=== PATIENT | male | born 1930 | race Caucasian/White ===

== ENCOUNTER 2016-08-17 18:34 | Emergency (ER) | payer MEDICARE ==
[2016-08-17 20:25] LABS: Hematocrit 48 % (42-52); Mean Corpuscular HGB Conc 33 g/dl (31-36); Mean Corpuscular Hemoglobin 32 pg (27-31); Mean Corpuscular Volume 95 fL (80-94); Mean Platelet Volume 8 um3 (7.4-10.4); Red Blood Count 5.09 10^6/ul (4.0-5.4); Red Cell Distribution Width 15 % (10.5-15); White Blood Count 10.8 10^3/ul (3.5-10.8)
[2016-08-17 20:44] LABS: Albumin 3.8 g/dL (3.2-5.2); BUN/Creatinine Ratio 18.3 (8-20); EGFR Non-African American 57.5 (>60); Globulin 2.9 g/dL (2-4); Total Bilirubin 0.4 mg/dL (0.2-1.0); Total Protein 6.7 g/dL (6.4-8.9)
--- NOTE | 2016-08-17 20:44 | RAD ---
INDICATION: Head injury. COMPARISON: There are no prior studies available for comparison. TECHNIQUE: Contiguous axial sections of the brain were obtained from the skull base to the vertex without contrast. FINDINGS: The ventricles, cisterns and sulci are enlarged consistent with diffuse atrophy. There are small areas of decreased density in the subcortical and periventricular white matter suggestive of mild chronic small vessel ischemic changes. No other focal abnormality or mass effect is seen. There is no evidence for hemorrhage. There is soft tissue swelling and air in the scalp anterior to the frontal bones. No fracture is seen. There is mucosal thickening within the maxillary, left ethmoid and left frontal sinuses most consistent with chronic sinusitis. IMPRESSION: SOFT TISSUE INJURY IN THE SCALP ANTERIOR TO THE FRONTAL BONES, NO EVIDENCE FOR ACUTE INTRACRANIAL ABNORMALITY.
[2016-08-17 21:17] LABS: Potassium 4.4 mmol/L (3.5-5.0)
--- NOTE | 2016-08-17 21:23 | ED ---
Jaiden Giron Matthew, scribed for Joseph Macedo MD on 08/17/16 at 1934 . Head Injury - HPI Summary HPI Summary: An 85 y/o male presents to the ED with head injury since hours ago. The patient bent over and fell into an end table breaking the table and sustaining head trauma. The patient denies LOC. He's currently on warfarin and uses 2L O2 at baseline. - History Of Current Complaint Chief Complaint: EDHeadInjury Stated Complaint: FALL/HEAD INJURY Time Seen by Provider: 08/17/16 19:15 Hx Obtained From: Patient Mechanism Of Injury: Fall From A Standing Position Onset/Duration: Started Hours Ago, Traumatic, Still Present Onset of Pain: Immediate Severity Currently: Mild Severity Initially: Mild Pain Intensity: 2 Pain Scale Used: 0-10 Numeric Location of Head Injury: Frontal Associated Signs And Symptoms: LOC Duration Unknown - Allergies/Home Medications Allergies/Adverse Reactions: Allergies Allergy/AdvReac Type Severity Reaction Status Date / Time Aspirin Allergy Facial Verified 08/17/16 18:45 Redness/Flushing PMH/Surg Hx/FS Hx/Imm Hx Cardiovascular History: Reports: Hx Hypertension Respiratory History: Reports: Hx Chronic Obstructive Pulmonary Disease (COPD), Hx Sleep Apnea GI History: Reports: Hx Gastroesophageal Reflux Disease Musculoskeletal History: Reports: Hx Arthritis Psychiatric History: Reports: Hx Depression Infectious Disease History: Denies: Traveled Outside the [place] in Last 30 Days - Family History Known Family History: Positive: Hypertension Family History: FHx of [place] - Social History Alcohol Use: Rare Hx Substance Use: No Substance Use Type: Reports: None Hx Tobacco Use: Yes Smoking Status (MU): Former Smoker Review of Systems Constitutional: Negative Eyes: Negative ENT: Negative Cardiovascular: Negative Respiratory: Negative Gastrointestinal: Negative Genitourinary: Negative Musculoskeletal: Other - head trauma Skin: Other - laceration to the forehead Neurological: Negative Psychological: Normal All Other Systems Reviewed And Are Negative: Yes Physical Exam Triage Information Reviewed: Yes Vital Signs On Initial Exam: Initial Vitals Temp Pulse Resp BP Pulse Ox 97.8 F 79 18 141/70 91 08/17/16 18:43 08/17/16 18:43 08/17/16 18:43 08/17/16 18:43 08/17/16 18:43 Vital Signs Reviewed: Yes Appearance: Positive: Ill-Appearing, Pain Distress - mild discomfort Skin: Positive: Other - large frontal scalp lac Eyes: Positive: CANDELARIO ENT: Positive: Pharynx normal, TMs normal Neck: Positive: Supple Respiratory/Lung Sounds: Positive: Clear to Auscultation, Breath Sounds Present Cardiovascular: Positive: RRR Abdomen Description: Positive: Soft Bowel Sounds: Positive: Present Musculoskeletal: Positive: Strength/ROM Intact Neurological: Positive: Sensory/Motor Intact, Alert, Oriented to Person Place, Time Psychiatric: Positive: Affect/Mood Appropriate Diagnostics - Vital Signs Vital Signs Temp Pulse Resp BP Pulse Ox 08/17/16 18:43 97.8 F 79 18 141/70 91 - Laboratory Lab Results: Lab Results 08/17/16 08/17/16 08/17/16 Range/Units 20:10 20:10 20:10 WBC 10.8 (3.5-10.8) 10^3/ul RBC 5.09 (4.0-5.4) 10^6/ul Hgb 16.0 (14.0-18.0) g/dl Hct 48 (42-52) % MCV 95 H (80-94) fL MCH 32 H (27-31) pg MCHC 33 (31-36) g/dl RDW 15 (10.5-15) % Plt Count 211 (150-450) 10^3/ul MPV 8 (7.4-10.4) um3 Neut % (Auto) 80.8 (38-83) % Lymph % (Auto) 10.7 L (25-47) % [place] % (Auto) 6.4 (1-9) % Eos % (Auto) 1.1 (0-6) % Baso % (Auto) 1.0 (0-2) % Absolute Neuts (auto) 8.7 H (1.5-7.7) 10^3/ul Absolute Lymphs (auto) 1.2 (1.0-4.8) 10^3/ul Absolute Monos (auto) 0.7 (0-0.8) 10^3/ul Absolute Eos (auto) 0.1 (0-0.6) 10^3/ul Absolute Basos (auto) 0.1 (0-0.2) 10^3/ul Absolute Nucleated RBC 0.01 10^3/ul Nucleated RBC % 0 INR (Anticoag Therapy) 2.63 H (0.89-1.11) Sodium 134 (133-145) mmol/L Potassium 4.4 (3.5-5.0) mmol/L Chloride 101 (101-111) mmol/L Carbon Dioxide 27 (22-32) mmol/L Anion Gap 6 (2-11) mmol/L BUN 22 (6-24) mg/dL Creatinine 1.20 H (0.67-1.17) mg/dL Est GFR ( Amer) 74.0 (>60) Est GFR (Non-Af Amer) 57.5 (>60) BUN/Creatinine Ratio 18.3 (8-20) Glucose 131 H (70-100) mg/dL Calcium 9.0 (8.6-10.3) mg/dL Total Bilirubin 0.40 (0.2-1.0) mg/dL AST 18 (13-39) U/L ALT 19 (7-52) U/L Alkaline Phosphatase 69 (34-104) U/L Total Protein 6.7 (6.4-8.9) g/dL Albumin 3.8 (3.2-5.2) g/dL Globulin 2.9 (2-4) g/dL Albumin/Globulin Ratio 1.3 (1-3) Result Diagrams: 08/17/16 20:10 08/17/16 20:10 Lab Statement: Any lab studies that have been ordered have been reviewed, and results considered in the medical decision making process. - CT Brain CT CT Interpretation: No Acute Changes - IMPRESSION: SOFT TISSUE INJURY IN THE SCALP ANTERIOR TO THE FRONTAL BONES, NO EVIDENCE FOR ACUTE INTRACRANIAL ABNORMALITY. CT Interpretation Completed By: Radiologist Head Injury Course/Dx Assessment/Plan: An 85 y/o male presents to the ED with head injury since hours ago. The patient bent over and fell into an end table breaking the table and sustaining head trauma. The patient denies LOC. He's currently on warfarin and uses 2L O2 at baseline. Labs were reviewed. Brain CT shows soft tissue injury in the scalp anterior to the frontal bones, no evidence for acute intracranial abnormality. The head laceration was sutured by Rachael Pringle. The patient will follow-up with his PCP. - Diagnoses Provider Diagnoses: Scalp laceration, Closed head injury Discharge - Discharge Plan Condition: Improved Disposition: HOME Patient Education Materials: Laceration (ED), Head Injury (ED) Referrals: [facility] [place] [facility]FERRAL [Outside] Non Staff,Doctor [Primary Care Provider] - Additional Instructions: Please follow-up with your primary care physician in 3 days. The documentation as recorded by the Jaiden macdonald Matthew accurately reflects the service I personally performed and the decisions made by me, Joseph Macedo MD.
--- NOTE | 2016-08-17 22:22 | PN ---
Progress Note - Progress Note Note: sutures to forehead: cleaned area with saline 200ml Use local lidocaine 1% with epi Performed layered closer (18 sutures total) 4 sutures deep 6-0 absorbable Applied 14 sutures 6-0 nonabsorbable
[2016-08-17 23:43] VITALS: BP 112/60
== END 2016-08-17 23:42 | disposition home or self-care (01) ==
LOC: ED 18:34
DX: S01.01XA Laceration without foreign body of scalp, initial encounter (principal); S09.90XA Unspecified injury of head, initial encounter; Z87.891 Personal history of nicotine dependence; Z79.01 Long term (current) use of anticoagulants; Y92.9 Unspecified place or not applicable; W18.09XA Striking against other object with subsequent fall, initial encounter; I10 Essential (primary) hypertension; J44.9 Chronic obstructive pulmonary disease, unspecified; K21.9 Gastro-esophageal reflux disease without esophagitis
CPT/HCPCS: 36415; 70450; 80053; 85025; 85610; 99283

== ENCOUNTER 2017-12-25 17:03 | Emergency (ER) | payer MEDICARE ==
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
--- NOTE | 2017-12-25 18:11 | RAD ---
INDICATION: Fall. Anticoagulated. COMPARISON: No relevant prior exams available on the [facility] for comparison. TECHNIQUE: Multidetector CT images foramen magnum to lung apices without contrast. Multiplanar reformation. REPORT: Motion artifact degrades image quality. Normal vertebral alignment accounting for exam positioning without spondylolisthesis or subluxation at any level. Negative for cervical vertebral body or posterior element fracture. Negative for paravertebral hematoma. 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 At 3-4 uncinate process spurring and facet joint osteoarthritis results in moderate LEFT unilateral foraminal stenosis. At C4-C5 uncinate process spurring and facet joint osteoarthritis results in mild RIGHT unilateral foraminal stenosis. At C5-C6 dorsal disc osteophyte complex results in mild impression on the ventral margin of the thecal sac and uncinate process spurring and facet joint osteoarthritis results in severe RIGHT and moderate LEFT foraminal stenosis. At C6-C7 dorsal disc osteophyte complex results in mild impression on the ventral margin of the thecal sac. Uncinate process spurring and facet joint osteoarthritis results in severe RIGHT and moderately severe LEFT foraminal stenosis. Congenitally generous pedicle lengths mitigate against more significant acquired central canal stenosis. IMPRESSION: #. No CT evidence for traumatic cervical spine injury.
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
[2017-12-25] MEDS ORDERED: Acetaminophen TAB* 325 MG PO ONE (18:36)
[2017-12-25] MEDS ORDERED: Albuterol/Ipratropium NEB.SOL* Albuterol 2.5 MG/Ipratropium 0.5 MG 3 ML INH ONE (18:36)
--- NOTE | 2017-12-25 20:19 | RAD ---
EXAM: CT Abdomen and Pelvis Without Intravenous Contrast CLINICAL HISTORY: 87 years old, male; Pain; Other: Low back pain; Additional info: Low back, b/l flank pain S/P fall TECHNIQUE: Axial computed tomography images of the abdomen and pelvis without intravenous contrast. All CT scans at this facility use at least one of these dose optimization techniques: automated exposure control; mA and/or kV adjustment per patient size (includes targeted exams where dose is matched to clinical indication); or iterative reconstruction. Coronal and sagittal reformatted images were created and reviewed. COMPARISON: No relevant prior studies available. FINDINGS: Lung bases: Patchy dependent lower lobe opacities are present bilaterally which could represent atelectasis, infiltrate, or aspiration. ABDOMEN: Liver: There is a diffuse decrease in hepatic parenchymal density, consistent with fatty infiltration. Gallbladder and bile ducts: Calcified gallstones are present in the gallbladder which is incompletely distended. No adjacent inflammatory change. Pancreas: Unremarkable. No mass Spleen: Unremarkable. Adrenals: Unremarkable. No mass. Kidneys and ureters: Several cysts are present in the left kidney, largest measuring 4.5 cm in the interpolar region. However, 2 exophytic hypodensities arise from the lateral aspect of the left kidney on series 2 images 29 and 34, measuring 16 and 13 mm, respectively. These measure above simple fluid density and may represent complex cysts or small solid lesions. However, they are incompletely characterized on this exam. A 5 mm calcification is present at the lower pole of the left kidney. A 4 mm hypodensity at the lower pole of the right kidney is too small to characterize but likely a tiny cyst. Stomach and bowel: Diverticula are noted in the left colon with innumerable diverticula in the sigmoid colon. No evidence of diverticulitis. No bowel obstruction. PELVIS: Appendix: The appendix is normal. Bladder: Unremarkable. No calcified stones. Reproductive: Unremarkable as visualized. ABDOMEN and PELVIS: Intraperitoneal space: Unremarkable. No free air or free fluid. Bones/joints: Mild degenerative endplate change and facet joint hypertrophy noted in lower lumbar spine, with moderate narrowing of the L5/S1 disc space. Vertebral body heights are maintained.No acute fracture identified. Soft tissues: Unremarkable. Vasculature: There is calcified plaque of the abdominal aorta and bilateral iliac arteries. There is no aneurysm. Lymph nodes: Unremarkable. No enlarged lymph nodes. Tubes, lines and devices: Electrical leads extend into the heart. Heart size is at the upper limits of normal. IMPRESSION: 1. No traumatic abnormality in the abdomen or pelvis. 2. Patchy dependent lower lobe opacities are present bilaterally which could represent atelectasis, infiltrate, or aspiration. 3. Degenerative change in lower lumbar spine. No acute fracture identified. See separate lumbar spine CT report. 4. Left renal cysts. Additionally, 2 small hypodensities are present in left kidney which measure above simple fluid density. These may represent complex cysts or small solid lesions. However, they are incompletely characterized on this exam. Comparison with prior studies is recommended. If no prior is available, ultrasound or renal protocol CT or MRI may be helpful for further characterization. 5. Cholelithiasis. Diverticulosis coli. No acute inflammation. 6. Left nephrolithiasis. No obstructive uropathy. 7. Other non-emergent findings as above.
--- NOTE | 2017-12-25 20:25 | RAD ---
EXAM: CT Lumbar Spine Without Intravenous Contrast CLINICAL HISTORY: 87 years old, male; Pain; Low back pain; Additional info: Pain S/P fall TECHNIQUE: Axial computed tomography images of the lumbar spine without intravenous contrast. All CT scans at this facility use at least one of these dose optimization techniques: automated exposure control; mA and/or kV adjustment per patient size (includes targeted exams where dose is matched to clinical indication); or iterative reconstruction. Coronal and sagittal reformatted images were created and reviewed. COMPARISON: No relevant prior studies available. FINDINGS: Vertebrae: No acute fracture or subluxation. Mild facet joint sclerosis noted at L3/L4, L4/L5, and more severe at L5/S1. Moderate endplate osteophyte formation present from L2-L5. Discs/spinal canal/neural foramina: There is moderate to severe narrowing of the L5/S1 disc space. Vacuum disc phenomenon noted at L4/L5 with no significant disc space narrowing. Soft tissues: Unremarkable. Vasculature: There is calcified plaque of the abdominal aorta and bilateral iliac arteries. There is no aneurysm. Kidneys and ureters: Left renal cyst partially visualized. See separate abdomen and pelvis CT report. IMPRESSION: 1. No acute fracture or subluxation. 2. Moderate degenerative change in lumbar spine as above. 3. See separate abdomen and pelvis CT report.
[2017-12-25 21:28] VITALS: BP 157/88
--- NOTE | 2017-12-26 07:55 | RAD ---
INDICATION: Right elbow pain after a fall COMPARISON: None. TECHNIQUE: 3 views right elbow. REPORT: The visualized bones of the right elbow are well corticated and properly aligned. There is no radiographically apparent fracture or dislocation. There is no radiographic evidence of pathologic joint effusion. IMPRESSION: Normal radiograph of the right elbow. If the patient's symptoms persist further follow-up imaging is recommended. R0
== END 2017-12-25 21:45 | disposition home or self-care (01) ==
LOC: ED 17:03
DX: M54.9 Dorsalgia, unspecified (principal); M25.521 Pain in right elbow; Z87.891 Personal history of nicotine dependence; J44.9 Chronic obstructive pulmonary disease, unspecified; M54.5 Low back pain; S09.90XA Unspecified injury of head, initial encounter; W19.XXXA Unspecified fall, initial encounter; Y92.9 Unspecified place or not applicable; Z79.01 Long term (current) use of anticoagulants
CPT/HCPCS: 70450; 72125; 72131; 74176; 99285; A9270-GY

== ENCOUNTER 2019-03-02 14:33 | Emergency (ER) | payer MEDICARE ==
--- OUTSIDE RECORDS SUMMARY | 2019-03-02 14:40 | XMS REPORT | Summary of Care ---
:1930 Author Organization [facility] Address [address] [facility] [place] [address] Care Team Providers Name Role Phone Connor Sullivan Primary Care Provider Reason for Visit Reason Comments Heart Problem 6 month f/u Results echo today Encounter Details Date Type Department Care Team Description 02/15/2019 Office Visit Carla Harris, Nonischemic cardiomyopathy (HCC) (Primary Dx); Cardiology DIRECTOR OF MEDICAL EDUCATION Atrial fibrillation, chronic [address] [place] [address] [place] [address] [phone] Allergies Active Allergy Reactions Severity Noted Date Comments Aspirin Swelling 01/17/2008 Eyes swell shut documented as of this encounter (statuses as of 02/15/2019) Medications Medication Sig Dispensed Refills Start Date End Date Status Omeprazole 20 MG Take 1 Tab by 90 Tab 3 06/30/2012 Active Oral Tab EC mouth DAILY. Tamsulosin HCl TAKE 1 CAPSULE 90 Cap 1 02/20/2013 Active (FLOMAX) 0.4 MG DAILY Oral Cap allopurinol Take 1 Tab by 90 Tab 5 11/14/2013 Active (ZYLOPRIM) 300 MG mouth DAILY. Oral Tab mometasone furoate Take 1 Puff by 3 Inhaler 0 07/05/2014 Active (ASMANEX) 220 inhalation mcg/inh DAILY. spironolactone Take 1 Tab by 90 Tab 0 07/05/2014 Active (ALDACTONE) 25 MG mouth DAILY. Oral TabIndications: Diastolic dysfunction Albuterol Take by 0 Active (PROVENTIL IN) inhalation. diltiazem (CARDIZEM Take 1 Cap by 180 Cap 0 02/12/2016 Active CD) 180 MG Oral mouth DAILY. CAPSULE SR 24 HRIndications: Diastolic dysfunction Tiotropium Take 2 Each by 1 g 0 01/21/2017 Active [place]-Olodaterol inhalation 2.5-2.5 MCG/ACT DAILY. Inhalation Aero Soln predniSONE Take 1 Tab by 30 Tab 0 01/21/2017 Active (DELTASONE) 5 MG mouth DAILY. Oral Tab acetaminophen Take 1,000 mg by 0 Active (TYLENOL) 500 MG mouth EVERY SIX Oral Tab HOURS NEEDED for Pain. lidocaine Apply bid 150 g 0 01/04/2018 Active (XYLOCAINE) 5 % Apply externally Ointment ondansetron Take 4 mg by 18 Tab 0 04/22/2018 Active (ZOFRAN) 4 MG Oral mouth EVERY Tab EIGHT HOURS NEEDED (nausea). diclofenac 4 g by Topical 100 g 5 05/02/2018 Active (VOLTAREN) 1 % route TWICE Transdermal Gel DAILY. tramadol (ULTRAM) Take 1 Tab by 30 Tab 0 06/02/2018 Active 50 MG Oral Tab mouth EVERY EIGHT HOURS NEEDED (back pain compression fx). Max Daily Amount: 150 mg. warfarin (COUMADIN) Take 0.5-1 Tabs 90 Tab 3 08/08/2018 Active 5 MG Oral by mouth DAILY. TabIndications: As directed Atrial which is 2.5mg fibrillation, Mon. 5mg rest chronic of week mirtazapine Take 1 Tab by 90 Tab 1 09/01/2018 Active (REMERON) 15 MG mouth EVERY Oral Tab BEDTIME. mometasone furoate Take 1 Puff by 3 Each 0 09/01/2018 Discontinued (ASMANEX) 220 inhalation 9 MCG/INH Inhalation DAILY. 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 04/17/2013 Overview: Managed by [facility], referred by Dr Wills, Dx afib, CHADS2 score 1, target INR range 2.0-3.0 Anticoagulant Warfarin Updated referral 04/2014, 07/2015, 09/2016, 12/2017, 01/2019 Updated order 05/17/14, 08/12/15, 10/19/16, 01/03/18, 02/10/19 Additional factors influencing anticoagulation: Chads2 of 2 (age and heart failure) [id number] of 3 (age, heart failure) Tylenol increases warfarin effect Allopurinol increases Warfarin effect Diltiazem increases Warfarin effect Omeprazole increases Warfarin effect Spironolactone decreases warfarin Prednisone decreased Warfarin effect Tamsulosin has unknown/unpredictable effects of Warfarin Obesity, unspecified 05/25/2012 Overview: This patient's BMI This patient's BMI has been calculated and is above average , and BMI management plan is completed. General patient education discussion including: weight loss link to reduction of risk factors for cardiac and other diseases, importance of long-term maintenance treatment in weight loss, and accomplish with exercise as tolerated and diet control Erythrocytosis 09/26/2009 Malignant neoplasm of skin 09/26/2009 Overview: Replaced inactive diagnosis Chronic rhinitis 09/26/2009 PVCs (premature ventricular contractions) 09/26/2009 OA (osteoarthritis) 09/26/2009 Unspecified hearing loss 09/26/2009 COPD (chronic obstructive pulmonary disease) 01/17/2008 Overview: Followed by Dr. Navarro PULMONARY NODULES 01/17/2008 Overview: Followed by Dr. Navarro JUSTICE (obstructive sleep apnea) 01/17/2008 Overview: Followed by Dr. Navarro Left Lower Lobular Atelectasis 01/17/2008 Overview: Followed by Dr. Navarro GERD (gastroesophageal reflux disease) 01/17/2008 Fatty liver 01/17/2008 Atrial fibrillation, chronic documented as of this encounter (statuses as of 02/15/2019) Resolved Problems Problem Noted Date Resolved Date Atrial fibrillation, unspecified type 08/05/2015 02/12/2016 Obesity (BMI 30-39.9) 01/17/2008 03/01/2012 Overview: This patient's BMI This patient's BMI has been calculated and is above average, and BMI management plan is completed. General patient education discussion including: weight loss link to reduction of r isk factors for cardiac and other diseases, importance of long-term maintenance treatment in weight loss, and accomplish with exercise as tolerated and diet control History of Depression 01/17/2008 09/26/2009 History of Bladder Tumors 01/17/2008 09/26/2009 Overview: S/P resection followed by intravesical BCG, 04/2002, Dr. Tello. Continues f /u with Dr. Tello. Left Ureteral Calculus 01/17/2008 09/26/2009 Overview: S/P stent placement, [place]. Tello, [place] [facility] documented as of this encounter (statuses as of 02/15/2019) Immunizations Name Administration Dates Next Due Influenza (IM) Preservative Free 01/19/2012, 02/10/2011, 01/22/2009, 02/16/2008 Influenza (IM) W/Pres 02/09/2013, 01/23/2010 Influenza Vaccine 65 Yrs + 02/15/2019 Influenza Vaccine High Dose 02/16/2018, 01/21/2017, 02/21/2015, 02/02/2014 Influenza Vaccine Split 01/21/2016 PNEUMOCOCCAL POLYSACCHARIDE VACCINE 02/20/2010, 03/10/2005 Pneumococcal Conjugate(13 Valent) 02/05/2016 TDAP Vaccine 02/10/2011 documented as of this encounter Social History Tobacco Use Types Packs/Day Years Used Date Former Smoker Cigarettes 1 50 Quit: 04/26/2003 Smokeless Tobacco: Never Used Comments: smoked mainly cigarettes but did occasionally smoke a pipe Alcohol Use Drinks/Week oz/Week Comments Yes 4 Cans of beer 4.0 occasionally Sex Assigned at Date Recorded Not on file Job Start Date Occupation Industry Not on file Not on file Not on file Travel History Travel Start Travel End No recent travel history available. documented as of this encounter Last Filed Vital Signs Vital Sign Reading Time Taken Comments Blood Pressure 136/68 02/15/2019 1:55 PM EDT Pulse 65 02/15/2019 1:55 PM EDT Temperature - - Respiratory Rate - - Oxygen Saturation 95% 02/15/2019 1:55 PM EDT Inhaled Oxygen Concentration - - Weight 108.4 kg (239 lb) 02/15/2019 1:55 PM EDT Height 180.3 cm (5' 11") 02/15/2019 1:55 PM EDT Body Mass Index 33.33 02/15/2019 1:55 PM EDT documented in this encounter Patient Instructions Patient InstructionsCarla Holt CRNP - 02/15/2019 2:00 PM EDTWe will send you a results of your Echocardiogram and let you know if any medications changes are necessary at that time. Follow up in [address] Ventura on 08/16/2019, or sooner if there are any changes in your symptoms. Continue with strict risk factor modification; especially increasing cardiovascular activity, low fat low cholesterol diet and weight management. Would like to see Blood pressure less than 130/80 and trying to keep LDL less than 70. Any further questions or concerns contact our office. documented in this encounter Progress Notes Carla Holt CRNP - 02/15/2019 2:00 PM EDT PATIENT: Korey Jaime : 1930 DATE OF SERVICE: 02/15/2019 REFERRING PRACTITIONER: Jared Ventura PRIMARY CARE PROVIDER: Connor Sullivan CHIEF COMPLAINT: Chief Complaint Patient presents with Heart Problem 6 month f/u Results echo today HISTORY OF PRESENT ILLNESS: Korey Jaime is a 88-y.o. male PMH COPD on home O2 and chronic low dose prednisone, obesity, JUSTICE on CPAP, permanent Atrial fibrillation on Coumadin s/p AV node ablation and [facility] Zhou dual chamber ppm as well as nonischemic cardiomyopathy. Dual chamber ppm was upgraded to [facility] Zhou BiV ppm 04/07/[address] Wills given high RV pacing burden. 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 Remains housebound, butis able to complete his stem mounter without significant limitation. Occasionally monitors his blood pressure at home and it is generally 120s/60s. Denying any chest pain. Denies congestive heart failure symptoms, palpations or dizziness. Cardiac Studies: PPM Interrogation 11/11/18: There were 9 recorded "high ventricular rate" episodes which are brief episodes of rapid ventricular response to atrial fibrillation. Heart rates ranged between 70-80 bpm themajority of the time. Surface QRS measured 121 ms. CorVue Impedance monitoring shows no decrease in thoracic impedance measurements. If decreased, this would indicate that possible fluid accumulation was occurring at that time. Pacemaker function appears normal.Pacemaker function appears normal. TTE 07/31/16: Limited study to assess LVEF. LV systolic function is mild-moderately reduced, with an estimated LVEF of 40%. There is global hypokinesis. In direct visual comparison with images of TTE dated 12/23/15, abnormal septal motion and regional wall motion abnormalities are not seen (patient is now biventricular paced), and there is very minimal improvement in overall LVEF. Left and Right Heart Cath 01/21/16: RIGHT HEART CATHETERIZATION FINDINGS: 1. Right atrial pressure, mean of 7. 2. Right ventricular pressure was 40/7. 3. Pulmonary artery pressure was mean of 25. 4. Pulmonary capillary wedge pressure was 10. 5. Cardiac output by Jana was 8.1. 6. Cardiac index by Jana was 3.5. 7. Aortic saturation was 96%. 8. Pulmonary artery saturation was 81%. 9. Right atrial saturation was 81%. 10. Delta saturation was 15%. 11. Pulmonary vascular resistance was 1.7 wood units. SUMMARY: 1. Mild nonobstructive coronary artery disease. 2. Normal pulmonary arterial pressure. Limited TTE 12/23/15: FINAL IMPRESSION: Limited study to assess LVEF and regional wall motion. IV contrast agent "Definity" was used for enhanced imaging of the LV endocardium. Mild concentric LVH with normal left atrial size. Moderately reduced LV systolic function with abnormal septal motion and LAD distribution wall motion abnormalities, as described. Calculated LVEF 38%. Mild right heart enlargement with low normal RV contractility. No pericardial effusion. Compared to prior echo report 10/07/2015, LVEF is not significantly changed. TTE 10/07/15: FINAL IMPRESSION: Left ventricle normal in size with moderate systolic dysfunction which is most likely global with Dysynchrony creating appearance of multiple wall motion abnormalities. EF 35-40%. diastolic dysfunction of advanced degree also present. The right ventricle is normal in size with near normal contractility. PPM/ICD wires visualized in right atrium and right ventricle. Mild enlargement of both atria left more than right. The aortic valve is tricuspid, mildly calcified, with normal mobility. There is no aortic stenosis or regurgitation. Mitral valve has thickened but flexible leaflets. There is at least mild mitral regurgitation. There is mild tricuspid regurgitation with mild elevation of pulmonary artery pressure. No pericardial effusion. compared to 09/14/2013, not a significant change. PPM Interrogation 09/30/15: This visit was performed remotely. Ventricular pacing with capture and atrial sensing was seen at the time of this transmission. Mr. Drader remains in atrial fibrillation 100% of the time this conductsrapidly at times. Pacemaker function appears normal. [place] [facility] [place]: 1. Normal coronary arteries 2. Normal LV size and systolic function Past Medical History: Diagnosis Date AK (actinic keratosis) Allergic rhinitis Arthritis left hand Atrial fibrillation (HCC) Basal cell carcinoma nos Cardiac dysrhythmia, unspecified frequent PVC COPD (chronic obstructive pulmonary disease) (HCC) 01/17/2008 chronic oxygen Diastolic dysfunction 05/26/2013 Erythrocytosis Fatty liver 01/17/2008 GERD (gastroesophageal reflux disease) 01/17/2008 History of Bladder Tumors 01/17/2008 S/P resection followed by intravesical BCG, 04/2002, Dr. Tello. Continues f /u with Dr. Tello. History of Depression 01/17/2008 off prozac Left Lower Lobular Atelectasis 01/17/[address] Navarro Left Ureteral Calculus 01/17/2008 S/P stent placement, [place]. Tello, [place]16[place] [facility] Obesity (BMI 30.0-39.9) 01/17/2008 10/17/2007, BMI: 35.01 JUSTICE (obstructive sleep apnea) 01/17/[address] Navarro CPAP 9 and 2liter Osteoarthritis Problems with hearing PULMONARY NODULES 01/17/[address] Navarro Rosacea Squamous cell carcinoma nos Patient Active Problem List Diagnosis COPD (chronic obstructive pulmonary disease) (HCC) PULMONARY NODULES JUSTICE (obstructive sleep apnea) Left Lower Lobular Atelectasis GERD (gastroesophageal reflux disease) Fatty liver Erythrocytosis Malignant neoplasm of skin Chronic rhinitis PVCs (premature ventricular contractions) OA (osteoarthritis) Unspecified hearing loss Obesity, unspecified Atrial fibrillation, chronic correction current use of anticoagulant therapy Diastolic dysfunction Pulmonary hypertension (HCC) Shortness of breath Chronic systolic congestive heart failure (HCC) Past Surgical History: Procedure Laterality Date BLADDER OPERATION NEC 04/2002 Resection followed by intravesical BCG, Dr. Tello CARDIAC STRESS TEST NEC 2009 no ischemia but hypokinetic with ef 45% cath normal CARDIOVERSION N/A 05/12/2013 Procedure: CARDIOVERSION; Surgeon: Chencho Wills MD; Location: [facility]; Laterality: N/A; CV CATHETERIZATION HEART RIGHT AND LEFT Right 01/21/2016 Procedure: CATHETERIZATION HEART RIGHT AND LEFT; Surgeon: Ede Duran MD ; Location: [facility] ECHOCARDIOGRAM 2009 LA slight dilated, RV =nl, mild LVH, zafar dysfxn, 50% IMPLANT PERMANENT PACEMAKER INSERTION N/A 05/15/2013 Procedure: IMPLANT PERMANENT PACEMAKER INSERTION; Surgeon: Chencho Wills MD; Location: [facility]; Laterality: N/A; AVN ABLATION / DUAL CHAMBER PPM LT RT/LEFT HEART CARD CATH 2009 normal SP URETERAL CATH OR STENT PLACEMENT [place] [facility] Current Outpatient Medications Medication Sig acetaminophen (TYLENOL) 500 MG Oral Tab Take 1,000 mg by mouth EVERY SIX HOURS NEEDED for Pain. Albuterol (PROVENTIL IN) Take by inhalation. allopurinol (ZYLOPRIM) 300 MG Oral Tab Take 1 Tab by mouth DAILY. diclofenac (VOLTAREN) 1 % Transdermal Gel 4 g by Topical route TWICE DAILY. diltiazem (CARDIZEM CD) 180 MG Oral CAPSULE SR 24 HR Take 1 Cap by mouth DAILY. lidocaine (XYLOCAINE) 5 % Apply externally Ointment Apply bid mirtazapine (REMERON) 15 MG Oral Tab Take 1 Tab by mouth EVERY BEDTIME. mometasone furoate (ASMANEX) 220 mcg/inh Take 1 Puff by inhalation DAILY. Omeprazole 20 MG Oral Tab EC Take 1 Tab by mouth DAILY. ondansetron (ZOFRAN) 4 MG Oral Tab Take 4 mg by mouth EVERY EIGHT HOURS NEEDED (nausea). predniSONE (DELTASONE) 5 MG Oral Tab Take 1 Tab by mouth DAILY. spironolactone (ALDACTONE) 25 MG Oral Tab Take 1 Tab by mouth DAILY. Tamsulosin HCl (FLOMAX) 0.4 MG Oral Cap TAKE 1 CAPSULE DAILY Tiotropium [place]-Olodaterol 2.5-2.5 MCG/ACT Inhalation Aero Soln Take 2 Each by inhalation DAILY. tramadol (ULTRAM) 50 MG Oral Tab Take 1 Tab by mouth EVERY EIGHT HOURS NEEDED (back pain compression fx). Max Daily Amount: 150 mg. warfarin (COUMADIN) 5 MG Oral Tab Take 0.5-1 Tabs by mouth DAILY. As directed which is 2.5mg Mon. 5mg rest of week No current facility-administered medications for this visit. Allergies Allergen Reactions Aspirin Swelling Eyes swell shut Family History Problem Relation Age of Onset Hypertension Mother Heart Mother 60-70 with angina but lived to 90s Cancer Father adrenal glands Hypertension Sister Arthritis Brother Arthritis Daughter Cancer Sister stomach Social History Socioeconomic History Marital status: Spouse name: Not on file Number of children: Not on file Years of education: Not on file Highest education level: Not on file Occupational History Not on file Social Needs Financial resource strain: Not on file Food insecurity: Worry: Not on file Inability: Not on file Transportation needs: Medical: Not on file Non-medical: Not on file Tobacco Use Smoking status: Former Smoker Packs/day: 1.00 Years: 50.00 Pack years: 50.00 Types: Cigarettes Last attempt to quit: 04/26/2003 Years since quittin.8 Smokeless tobacco: Never Used Tobacco comment: smoked mainly cigarettes but did occasionally smoke a pipe Substance and Sexual Activity Alcohol use: Yes Alcohol/week: 4.0 standard drinks Types: 4 Cans of beer per week Comment: occasionally Drug use: No Sexual activity: Not on file Lifestyle Physical activity: Days per week: Not on file Minutes per session: Not on file Stress: Not on file Relationships Social connections: Talks on phone: Not on file Gets together: Not on file Attends alevism service: Not on file Active member of club or organization: Not on file Attends meetings of clubs or organizations: Not on file Relationship status: Not on file Intimate partner violence: Fear of current or ex partner: Not on file Emotionally abused: Not on file Physically abused: Not on file Forced sexual activity: Not on file Other Topics Concern Not on file Social History Narrative 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 He worked for [employer] for a little over 35 years. Pt unaware of any exposure to asbestos or any other harsh chemicals. Pt. Was and Pt lives alone but has children (3) that live very close to the patient REVIEW OF SYSTEMS: Patient denies fever, febrile illness. denies fatigue. NEUROLOGIC: Denies transient ischemic attackor cerebrovascular accident signs or symptoms. Denies syncope or presyncopal episodes. CARDIOVASCULAR: denies chest pain, denies palpations, denies edema. RESPITATORY: + chronic shortness of breath, denies orthopnea. GASTROINTESTINAL: Denies melena. GENITOURINARY: Denies hematura or nocturia. MUSCULOSKELETAL: denies claudication. All other remaining systems are negative. Except that stated above in history of present illness PHYSICAL EXAMINATION: BP 136/68 | Pulse 65 | Ht 5' 11" (1.803 m) | Wt 239 lb (108.4 kg) | SpO2 95 % | BMI 33.33 kg/m CONSTITUTIONAL: alert, oriented, no acute distress. On nasal canula. EYES: negative EARS/NOSE/MOUTH/THROAT: Head: Normal, normocephalic, atraumatic. NECK: no bruit RESPIRATORY: clear to auscultation bilaterally CARDIOVASCULAR: regular rate and rhythm GASTROINTESTINAL: soft, non tender, without masses or organomegaly MUSCULOSKELETAL: negative VASCULAR: No edema SKIN: warm and dry, intact NEUROLOGICAL: alert, oriented, normal speech, no focal findings or movement disorder noted PSYCHIATRIC: appropriate to circumstances HEMATOLOGIC/LYMPHATIC/IMMUNOLOGIC: not examined Lab Results Component Value Date NA 137 05/02/2018 K 4.7 05/02/2018 CL 97 (L) 05/02/2018 CO2 27 05/02/2018 GLUCOSE 102 (H) 05/02/2018 BUN 21 (H) 05/02/2018 CREATININE 0.9 05/02/2018 CALCIUM 9.9 05/02/2018 TP 6.7 05/02/2018 ALBUMIN 3.9 05/02/2018 AST 35 05/02/2018 ALT 48 05/02/2018 ALK 154 (H) 05/02/2018 TBILI 0.6 05/02/2018 EGFR >60 05/02/2018 No results found for: BNP IMPRESSION: ICD-9-CM ICD-10-CM 1. Nonischemic cardiomyopathy (HCC) 425.4 I42.8 2. Atrial fibrillation, chronic 427.31 I48.20 PLAN: 1. Nonischemic Cardiomyopathy with NYHA Class III symptoms: Pt remains fairly euvolemic on exam today. Will proceed as follows: Most recent LV function: 40% (assessed on 07/31/16 by echo). Echocardiogram performed today 02/15/19, results pending. Will follow up. Beta-emerson: Not on d/t severe obstructive lung disease. BETTY-inhibitor or ARB: Not on due to hyperkalemia in the past. Aldosterone Antagonist: Cont spironolactone 25mg daily. BMP in April looked fine. Devices: Cont remote monitoring of his BiV ppm. 2. Permanent Atrial Fibrillation: The etiology of atrial fibrillation in this patient is most likelyrelated to obesity and JUSTICE. The heart-rate is currently reasonably well controlled on the current medical regimen. This patient's [id number] score is 3. I recommend the following treatment strategy and medical regimen for this patient: Stroke prevention: Based on the patient's [id number] risk profile, I recommend continuing warfarin for now. He's done well with this and there's no need to switch to a NOAC ([facility] and the costs of the NOACs is prohibitive for him). Rate control: S/p AV node ablation, although he has had a few high rate episodes detected by his ppm so he must have at least some AV conduction. Cont diltiazem at current dose. We've been avoiding BBs due to his severe lung disease. Rhythm control: N/A; in chronic AF. Tikosyn had been offered in the past, however Dr. Ventura feels it would be very unlikely to "stick" and would likely be quite expensive for the patient as he [facility]. Further workup/management issues: I again recommended continued CPAP use and working on weight loss. Patient Instructions We will send you a results of your Echocardiogram and let you know if any medications changes are necessary at that time. Follow up in [address] Ventura on 08/16/2019, or sooner if there are any changes in your symptoms. Continue with strict risk factor modification; especially increasing cardiovascular activity, low fat low cholesterol diet and weight management. Would like to see Blood pressure less than 130/80 and trying to keep LDL less than 70. Any further questions or concerns contact our office. Author: MARLENI Bell, 02/15/2019, 14:42 documented in this encounter Plan of Treatment Date Type Specialty Care Team Description 03/08/2019 [facility] Arrhythmia Center 03/15/2019 [facility] Anticoagulation 07/07/2019 [facility] Arrhythmia Center 08/16/2019 Office Visit Cardiology Jared Ventura MD [address] [place], [place] [id number] 11/10/2019 [facility] Arrhythmia [facility] Health Maintenance Due Date Last Done Comments MEDICARE ANNUAL WELLNESS 1930 VISIT HIV SCREENING 1945 ZOSTER IMMUNIZATION SERIES 1980 (1 of 2) FALL RISK ASSESSMENT 11/06/1995 DEPRESSION SCREENING 01/21/2018 01/21/2017 INFLUENZA VACCINE (#1) 2018 02/16/2018, 01/21/2017, 01/21/2016, Additional history exists PNEUMOCOCCAL 65+YRS Completed 02/05/2016, 02/20/2010, 03/10/2005 HPV IMMUNIZATION SERIES Aged Out No longer eligible based on patient's age to complete this topic MENINGOCOCCAL VACCINE IMM Aged Out No longer eligible based on patient's age to complete this topic documented as of this encounter Goals Goal Patient Goal Associated Recent Patient-Stated? Author Type Problems Progress Weight CHF 14 (02/15/2019 No Laurie, fernando vs. 1:55 PM EDT) MD Connor 18 mo min (lbs) < 5 Note: This is an individualized treatment (congestive heart failure, CHF) goal for Korey Jaime: Displayed above (on the right) is how many pounds you are in excess of your lowest weight over the past 18 months. Note that lower numbers are better. Excessive weight gain often indicates fluid reten tion and worsening heart failure. You should contact your doctor immediately if the above number is too high (above your goal, the number on the left). COPD Lifestyle No Connor Sullivan MD Note: 1. Correct use of inhalers. Refer to Medication List 2. Physical Activity. Pulmonary rehab, regular physical exercise Keep immunizations current Lifestyle No Connor Sullivan MD Note: This is an individualized lifestyle goal for Korey Jaime: Please be sure to keep up-to-date on recommended immunizations. For example, this would include a yearly influenza vaccine. Immunization status can be seen by looking at the Health Maintenance sections of your [facility], Plan of Care, and any After Visit Summaries. Consume a [id number] diet Lifestyle No Connor Sullivan MD Note: This is an individualized lifestyle goal for Korey Jaime: Please do not add additional salt to your food. Additional salt may lead to fluid retention and worsen your congestive heart failure. Take all prescribed medications as directed Self-management No Connor Sullivan MD Note: This is an individualized self-management goal for Korey Jaime: Please take all prescribed medications as directed. 1. Do not skip doses. If you cannot afford your medications, talk with your doctor. 2. Use a pill reminder system such as a pill box if needed. Your pharmacist can help you with this. 3. Contact your Pharmacy 5 days before your medication runs out. If you cannot take your medications for any reasons, talk with your doctor. 4. Please bring all of your medication bottles and inhalers (or a list of all your medications/inhalers) with you to every visit. Potential barriers to meeting all of your care plan goals will continue to be addressed on an ongoing basis. Check your weight daily Self-management Connor Shay MD Note: This is an individualized self-management goal for Korey Belinda Jaime: Please check your weight daily. Refer to the accompanying CHF treatment goal and call your doctor immediately for further instructions on how to respond to unexpected weight gain. documented as of this encounter Implants Implanted Type Area Apartment Community Manager Device Shelf Model / Identifier Expiration Serial / Date Lot Accent Dual Chamber [id number] - [id number] Left: [employer], 2014 [id number] / Implanted: Qty: 1 on 05/15/2013 at [facility] [employer] [id number] / Optisense Lead - [id number] Left: [employer], 03/25/201652 / Implanted: Qty: 1 on 05/15/2013 at [facility]. [id number] / Tendril Lead 8tc/58cm - [id number] Left: [employer], 02/24/2016 2088TC/58CM / Implanted: Qty: 1 on 05/15/2013 at [facility] [id number] / Quartet 1458q-86cm - [id number] N/A: Chest [employer], 12/24/2018 1458Q-86 / Implanted: Qty: 1 on 04/07/2016 by Chencho Wills MD at [facility]. [id number] / Quadra Allure Mp Rf [id number] N/A: Chest [employer] [id number] / Implanted: Qty: 1 on 04/07/2016 by Chencho Wills MD at [facility] [id number] / R documented as of this encounter Results Not on filedocumented in this encounter Visit Diagnoses Diagnosis Nonischemic cardiomyopathy (HCC) - Primary Other primary cardiomyopathies Atrial fibrillation, chronic Atrial fibrillation documented in this encounter Insurance Payer Benefit Plan / Subscriber ID Effective Dates Phone Address Type Group MEDICARE MEDICARE PART A xxxxxxxxxxx Effective for all Medicare & B dates [facility] xxxxxxxxxxx 2017-Present [facility] OPTIONS Guarantor Name Account Type Relation to Date of Phone Billing Patient Address Korey Jaime Personal/Family 1930 [address] (Home) [place], [place] [phone] (Work) documented as of this encounter
[2019-03-02] MEDS ORDERED: NS 0.9% 1000 ML** 1,000 ML IV ONE (15:04)
--- NOTE | 2019-03-02 15:07 | ED ---
Headache - HPI Summary HPI Summary: The patient is an 88 y/o M arriving by ambulance to [facility] accompanied by daughter with a chief complaint of nausea, headache, and weakness onset about a week ago with worsening. He reports that six days ago, he developed a headache that seemed to resolve, and then the following day developed nausea and decreased oral intake, and the headache. He called his PCP to make an appointment for today, and when his daughter arrived to take him to the appointment, he was very weak and unable to ambulate well to the car. He still feels weak now but is not in any pain from the headache. He additionally c/o chills but denies any fever or vomiting. His daughter notes that he had a serious head injury approximately a year ago after a fall, and he has chronic neuro changes from that, but he is at baseline now without confusion. At home, he uses 2L O2 at all times, and he uses a walker for ambulation. Takes Warfarin. PMHx: HTN, atrial fibrillation with pacemaker, COPD. Former smoker, rare EtOH, no substance use. Medications reviewed. Allergies noted. - History Of Current Complaint Chief Complaint: EDWeakness Stated Complaint: GENERAL ILLNESS PER EMS Time Seen by Provider: 03/02/19 14:40 Hx Obtained From: Patient Onset/Duration: Started days ago - one week, Still Present Initially Headache Was: Moderate Currently Pain Is: Current Pain Scale(0-10)= - 0 Timing: Intermittent, Lasting:, Hours Aggravating Factor: Nothing Allevating Factors: Nothing Associated Signs And Symptoms: Nausea, Other (Noted In Comments) - chills, decreased oral intake, weakness; Negative: fever, vomiting, confusion - Allergies/Home Medications Allergies/Adverse Reactions: Allergies Allergy/AdvReac Type Severity Reaction Status Date / Time aspirin Allergy Swelling Verified 12/25/17 18:27 Home Medications: Home Medications Acetaminophen [Acetaminophen Extra Strength] 1,000 mg PO Q6HR PRN 03/02/19 [ History Confirmed 03/02/19] Albuterol Sulfate [Proventil Hfa] 1 puff INH Q6HR PRN 03/02/19 [History Confirmed 03/02/19] Diclofenac 1% GEL (NF) [Voltaren 1% GEL (NF)] 1 applic TOPICAL BID 03/02/19 [ History Confirmed 03/02/19] Lidocaine 5% OINT* TUBE [Xylocaine 5% Oint*] 1 applic TOPICAL BID 03/02/19 [ History Confirmed 03/02/19] Mirtazapine TAB* [Remeron TAB*] 15 mg PO BEDTIME 03/02/19 [History Confirmed 11/11] Ondansetron TAB* [Zofran 4 MG Tab*] 4 mg PO Q8HR PRN 03/02/19 [History Confirmed 03/02/19] Tiotropium Brom/Olodaterol [Stiolto Respimat Inh [place] (60 puff)] 2 puff INH DAILY 03/02/19 [History Confirmed 03/02/19] Warfarin TAB(*) [Coumadin TAB(*)] 5 mg PO SUTUWETHFRSA 03/02/19 [History Confirmed 03/02/19] traMADol TAB* [Ultram*] 50 mg PO Q8H PRN 03/02/19 [History Confirmed 03/02/19] PMH/Surg Hx/FS Hx/Imm Hx Endocrine/Hematology History: Reports: Hx Anticoagulant Therapy Cardiovascular History: Reports: Hx Atrial Fibrillation, Hx Hypertension, Hx Pacemaker/ICD Respiratory History: Reports: Hx Chronic Obstructive Pulmonary Disease (COPD), Hx Sleep Apnea Denies: Hx Asthma GI History: Reports: Hx Gastroesophageal Reflux Disease Musculoskeletal History: Reports: Hx Arthritis Psychiatric History: Reports: Hx Depression - Surgical History Surgical History: Yes Surgery Procedure, Year, and Place: pacemaker - Immunization History Date of Influenza Vaccine: 02/02/2019 Infectious Disease History: No Infectious Disease History: Denies: Traveled Outside the [place] in Last 30 Days - Family History Known Family History: Positive: Hypertension Family History: FHx of CA - Social History Alcohol Use: Rare Hx Substance Use: No Substance Use Type: Reports: None Hx Tobacco Use: Yes Smoking Status (MU): Former Smoker Review of Systems Positive: Chills. Negative: Fever Positive: Nausea, Other - decreased oral intake. Negative: Vomiting Neurological: Other - Negatve: confusion Positive: Weakness - generalized All Other Systems Reviewed And Are Negative: Yes Physical Exam - Summary Physical Exam Summary: Constitutional: Elderly, Well-developed, Well-nourished, Alert. (-) Distressed Skin: Warm, Dry HENT: Normocephalic; Atraumatic. Hard of hearing, Nasal cannula Eyes: Conjunctiva normal Neck: Musculoskeletal ROM normal neck. (-) JVD, (-) Stridor, (-) Nuchal rigidity Cardio: Rhythm regular, rate normal, Heart sounds normal, Left chest defibrillator; Intact distal pulses; Radial pulses are 2+ and symmetric. (-) Murmur Pulmonary/Chest wall: Effort normal. (-) Respiratory distress, (-) Wheezes, (-) Rales Abd: Soft, (-) tenderness, (-) Distension, (-) Guarding, (-) Rebound Musculoskeletal: (-) Edema Lymph: (-) Cervical adenopathy Neuro: Alert, PERRL, Oriented x3, Strength normal, Cranial nerves II-XII are grossly intact. SILT, Strength 5/5 BUE and BLE, (-) Dysmetria, (-) Nystagmus, GCS: 15 Psych: Mood and affect Normal Triage Information Reviewed: Yes Vital Signs On Initial Exam: Initial Vitals Temp Pulse Resp BP Pulse Ox 98.3 F 70 17 154/93 97 03/02/19 14:41 03/02/19 14:41 03/02/19 14:41 03/02/19 14:41 03/02/19 14:41 Vital Signs Reviewed: Yes - Urszula Coma Scale Best Eye Response: 4 - Spontaneous Best Motor Response: 6 - Obeys Commands Best Verbal Response: 5 - Oriented Coma Scale Total: 15 Procedures - Sedation Patient Received Moderate/Deep Sedation with Procedure: No Diagnostics - Vital Signs Vital Signs Temp Pulse Resp BP Pulse Ox 03/02/19 14:41 98.3 F 70 17 154/93 97 - Laboratory Result Diagrams: 03/02/19 15:15 03/02/19 15:15 Lab Statement: Any lab studies that have been ordered have been reviewed, and results considered in the medical decision making process. - Radiology CXR Radiology Interpretation Completed By: Radiologist Summary of Radiographic Findings: Impression: Cardiomegaly with pulmonary vascular congestion. ED physician has reviewed this report. - CT Brain CT CT Interpretation Completed By: Radiologist Summary of CT Findings: Impression: 1. Intraventricular hemorrhage is centered about the body of right lateral ventricle. The ventricles are similar in caliber from December 25, 2017. ED physician has reviewed this report. - EKG 1528 Cardiac Rate: Other Rate - 70 BPM Summary of EKG Findings: An EKG at 1528 reveals ventricular paced rhythm at 70 BPM. No STEMI. ED physician has reviewed and interpreted this EKG. Headache Course/Dx - Course Course Of Treatment: 88-year-old male history of atrial fibrillation presents with headache, nausea feeling unwell. - no trauma, however concern for intracranial hemorrhage given that patient is on Coumadin and has a headache. head CT shows a right intraventricular hemorrhage, INR is 2. Patient given 10 of vitamin K IV as well as 25 of PCC. For neurosurgery consult and probably transfer. - Diagnoses Provider Diagnoses: Intraventricular hemorrhage - Physician Notifications Discussed Care Of Patient With: Keyana Mann - neurosurgery Time Discussed With Above Provider: 16:00 Instructed by Provider To: Transfer - I spoke with Dr. Mann concerning the patient's case, who recommends transfer since there is not coverage tomorrow. Transfer initiated at 1630. At 1645, I spoke with Dr. Hernandez from neurosurgery at [facility]. He recommends admission to critical care neurology. Dr. Morales at [facility] accepts the patient for transfer. Reason For Transfer: Specialty available at [facility] but not lead application architect. - Critical Care Time Critical Care Time: 30-74 min - Upon my evaluation, this patient had a high probability of imminent or life-threatening deterioration due to ICH, which required my direct attention, intervention, and personal management. I have personally provided 30 minutes of critical care time exclusive of time spent on separately billable procedures. Time includes review of laboratory data, radiology results, discussion with consultants, and monitoring for potential decompensation. Interventions were performed as documented above. Discharge ED - Sign-Out/Discharge Documenting (check all that apply): Patient Departure - Patient is accepted for transfer to [facility] by Dr. Morales. - Discharge Plan Condition: Stable Disposition: TRANS HIGHER LVL OF CARE FAC Referrals: No Primary Care Phys,NOPCP [Primary Care Provider] - - Billing Disposition and Condition Condition: STABLE Disposition: Trans Higher Lvl of Care Fac - Attestation Statements Document Initiated by Scribe: Yes Documenting Scribe: Rosalind Wilson Provider For Whom Kariibe is Documenting (Include Credential): Dr. Patricia Thomason MD Scribe Attestation: Rosalind Giron, scribed for Dr. Patricia Thomason MD on 03/02/19 at 1814. Scribe Documentation Reviewed: Yes Provider Attestation: The documentation as recorded by the scribe, Rosalind Wilson accurately reflects the service I personally performed and the decisions made by me, Dr. Patricia Thomason MD Status of Jill Document: Viewed
[2019-03-02 15:36] LABS: ABS Lymphocytes 0.8 10^3/ul (1.0-4.8); ABS Monocytes 0.8 10^3/ul (0-0.8); ABS Neutrophils 11.6 10^3/ul (1.5-7.7); Hematocrit 50 % (42-52); Lymphocyte % 5.9 %; Mean Corpuscular HGB Conc 34 g/dL (31-36); Mean Corpuscular Hemoglobin 32 pg (27-31); Mean Corpuscular Volume 94 fL (80-94); Mean Platelet Volume 7.6 fL (7.4-10.4); Platelet Count 259 10^3/uL (150-450); Red Blood Count 5.35 10^6 /uL (4.18-5.48); Red Cell Distribution Width 15 % (10-15); White Blood Count 13.1 10^3/uL (3.5-10.8)
[2019-03-02 15:43] LABS: INR 1.98 (0.82-1.09)
[2019-03-02 15:51] LABS: ALT 20 U/L (7-52); AST 18 U/L (13-39); Albumin 4.3 g/dL (3.2-5.2); Albumin/Globulin Ratio 1.3 (1-3); Alkaline Phosphatase 88 U/L (34-104); Anion Gap 8 mmol/L (2-11); Blood Urea Nitrogen 20 mg/dL (6-24); CO2 Carbon Dioxide 30 mmol/L (22-32); Calcium 9.6 mg/dL (8.6-10.3); Chloride 92 mmol/L (101-111); EGFR African American 75.6 (>60); EGFR Non-African American 62.5 (>60); Globulin 3.2 g/dL (2-4); Glucose 135 mg/dL (70-100); Sodium 130 mmol/L (135-145); Total Protein 7.5 g/dL (6.4-8.9)
[2019-03-02] MEDS ORDERED: Phytonadione IV (Adult)* 10 MG in NS 0.9% 50 ML* 50 ML IV ONE (15:55)
[2019-03-02 16:01] LABS: Troponin I 0.04 ng/mL (<0.04)
[2019-03-02 19:55] VITALS: BP 135/73
== END 2019-03-02 19:40 | disposition short-term general hospital (02) ==
LOC: ED 14:33
DX: I61.5 Nontraumatic intracerebral hemorrhage, intraventricular (principal); I10 Essential (primary) hypertension; I48.91 Unspecified atrial fibrillation; J44.9 Chronic obstructive pulmonary disease, unspecified; K21.9 Gastro-esophageal reflux disease without esophagitis; F32.9 Major depressive disorder, single episode, unspecified; Z95.0 Presence of cardiac pacemaker; Z87.891 Personal history of nicotine dependence; Z79.01 Long term (current) use of anticoagulants; Z79.899 Other long term (current) drug therapy; Z88.8 Allergy status to other drugs, medicaments and biological substances
CPT/HCPCS: 36415; 70450; 71045; 80053; 84484; 85025; 85610; 93005; 96374; 96375; 99283; C9132; J3430

== ENCOUNTER 2019-04-05 10:02 | Inpatient (IN) | payer MEDICARE ==
[2019-04-05] MEDS ORDERED: Albuterol/Ipratropium NEB.SOL* Albuterol 2.5 MG/Ipratropium 0.5 MG 3 ML INH ONE (10:10)
--- OUTSIDE RECORDS SUMMARY | 2019-04-05 10:21 | XMS REPORT ---
:1930 Author Organization [facility] Care Team Providers Name Role Phone Unavailable Unavailable Unavailable Problems This patient has no known problems. Allergies, Adverse Reactions, Alerts Allergy Allergy Type Status Severity Reaction(s) Onset Inactive Treating Comments Name Date Date Clinician aspirin Base Active Unknown Reaction 2019-03 Carmen Beam Ingredient Unknown -03 Medications Ordered Filled Start Stop Current Ordering Indication Dosage Frequency Signature Comments Components Medication Medication Date Date Medication? Clinician (SIG) Name Name No Known No Known No None None None Medications Medications For This For This Patient Patient Procedures This patient has no known procedures. Results This patient has no known results.
--- OUTSIDE RECORDS SUMMARY | 2019-04-05 10:21 | XMS REPORT ---
:1930 Author Organization [facility] Care Team Providers Name Role Phone Unavailable [...]
--- OUTSIDE RECORDS SUMMARY | 2019-04-05 10:21 | XMS REPORT | Summary of Care ---
:1930 Author Organization [facility] Address [address] [place] [address] Care Team Providers Name Role Phone Connor Sullivan MD Primary Care Provider Reason for Referral Diagnostic Radiology (Routine) Status Reason Specialty Diagnoses / Procedures Referred By Contact Referred To Contact Open Radiology Diagnoses Intraventricular hemorrhage Steve Yoo Procedures CT Head without Contrast W, DO [address] [facility] Room [address] [place] [address] Email: [email or web address] Reason for Visit Auth/Cert Status Reason Specialty Diagnoses / Procedures Referred By Contact Referred To Contact Diagnoses intraventricular hemorrhage Intraventricular hemorrhage Encounter Details Date Type Department Care Team Description 03/02/[address] NEUROSURGERY CarmenHaja MD [address] [place] [address] [phone] Intraventricular - Encounter Clayton Schmitt, [facility] [address] [facility] 4th Floor, [address] [place] [address] [phone] hemorrhage (Primary 03/07/2019 [address] [facility] Yazmin Jerez MD [address] [address] [phone] Dx) [place] [address] Allergies Active Allergy Reactions Severity Noted Date Comments Aspirin Anaphylaxis High 03/02/2019 documented as of this encounter (statuses as of 03/07/2019) Medications Medication Sig Dispensed Refills Start End Status Date Date Mometasone Furoate Inhale 1 puff 0 07/06/19 Active 220 MCG/INH into the lungs 15 Inhalation Aerosol daily Powder Breath Activated (ASMANEX (30 METERED DOSES)) Albuterol Sulfate Inhale 2 puffs 1 Inhaler 2 03/07/20 Active HFA 108 (90 Base) into the lungs 19 019 MCG/ACT Inhalation every 6 (six) Aerosol Solution hours as needed (PROVENTIL for Wheezing or HFA;VENTOLIN HFA) Shortness of Breath Allopurinol 300 MG Take 1 tablet by 30 tablet 2 03/08/20 Active Oral Tablet mouth daily 020 (ZYLOPRIM) Bisacodyl [address] 1 12 suppository 2 03/07/20 Active Rectal Suppository suppository 019 (DULCOLAX) rectally daily as needed for Constipation dilTIAZem HCl ER Take 1 capsule 30 capsule 2 03/08/20 Active Coated Beads 180 by mouth daily 19 020 MG Oral Capsule Extended Release 24 Hour (CARDIZEM CD) Docusate Sodium Take 1 capsule 60 capsule 2 03/07/20 Active 100 MG Oral by mouth Two 020 Capsule (COLACE) Times Daily Fluticasone Inhale 2 puffs 1 Inhaler 2 03/07/20 Active Propionate HFA 44 into the lungs 19 019 MCG/ACT Inhalation Two Times Daily Aerosol (FLOVENT HFA) predniSONE 5 MG Take 1 tablet by 30 tablet 0 03/08/20 Active Oral Tablet mouth daily 019 (DELTASONE) Tiotropium [place] Inhale 2 puffs 1 Inhaler 2 03/08/20 Active Monohydrate 2.5 into the lungs 19 019 MCG/ACT Inhalation daily Aerosol Solution (SPIRIVA RESPIMAT) Tamsulosin HCl 0.4 Take 1 capsule 30 capsule 2 03/08/20 Active MG Oral Capsule by mouth daily 020 (FLOMAX) Spironolactone 25 Take 1 tablet by 30 tablet 2 03/08/20 Active MG Oral Tablet mouth daily 19 019 (ALDACTONE) Tiotropium Inhale 2 each 0 01/22/20 Discontinued [place]-Olodaterol into the lungs 17 019 2.5-2.5 MCG/ACT daily Inhalation Aerosol Solution (STIOLTO RESPIMAT) documented as of this encounter (statuses as of 03/07/2019) Active Problems Problem Noted Date Atrial fibrillation, chronic 03/06/2019 ICD (implantable cardioverter-defibrillator) in place 03/06/2019 Intraventricular hemorrhage 03/02/2019 Chronic systolic congestive heart failure 03/10/2016 Shortness of breath 01/21/2016 Pulmonary hypertension 10/10/2013 Diastolic dysfunction 05/26/2013 superintendent terminal current use of anticoagulant therapy 04/17/2013 Overview: Managed by [facility], referred by Dr Wills, Dx afib, CHADS2 score 1, target INR range 2.0-3.0 Anticoagulant Warfarin Updated referral 04/2014, 07/2015, 09/2016, 12/2017, 01/2019 Updated order 05/17/14, 08/12/15, 10/19/16, 01/03/18, 02/10/19 Additional factors influencing anticoagulation: Chads2 of 2 (age and heart failure) [id number] of 3 (age, heart failure) Tylenol increases [...] as tolerated and diet control Erythrocytosis 09/26/2009 Hearing loss 09/26/2009 Malignant neoplasm of skin 09/26/2009 Overview: Replaced inactive diagnosis OA (osteoarthritis) 09/26/2009 PVCs (premature ventricular contractions) 09/26/2009 COPD (chronic obstructive pulmonary disease) 01/17/2008 Overview: Followed by Dr. Navarro Fatty liver 01/17/2008 GERD (gastroesophageal reflux disease) 01/17/2008 Lobular atelectasis 01/17/2008 Overview: Followed by Dr. Navarro Lung mass 01/17/2008 Overview: Followed by Dr. Navarro JUSTICE (obstructive sleep apnea) 01/17/2008 Overview: Followed by Dr. Navarro documented as of this encounter (statuses as of 03/07/2019) Social History Tobacco Use Types Packs/Day Years Used Date Former Smoker Cigarettes 1.5 55 Quit: 2002 Smokeless Tobacco: Never Used Alcohol Use Drinks/Week oz/Week Comments Not Currently Sex Assigned at Date Recorded Not on file Job Start Date Occupation Industry Not on file Not on file Not on file Travel History Travel Start Travel End No recent travel history available. documented as of this encounter Last Filed Vital Signs Vital Sign Reading Time Taken Comments Blood Pressure 137/80 03/07/2019 11:28 AM EST Pulse 70 03/07/2019 11:28 AM EST Temperature 36.5 03/07/2019 11:28 AM EST C (97.7 F) Respiratory Rate 18 03/07/2019 11:28 AM EST Oxygen Saturation 96% 03/07/2019 11:28 AM EST Inhaled Oxygen Concentration - - Weight 106 kg (233 lb 11.2 oz) 03/02/2019 9:05 PM EST Height 177.8 cm (5' 10") 03/02/2019 9:05 PM EST Body Mass Index 33.53 03/02/2019 9:05 PM EST documented in this encounter Progress Notes Tyler Bravo RN - 03/07/2019 12:19 PM ESTCM spoke with patients daughter , bed offered @ [facility]. Patient family has accepted the bed offer. Patient due for transport via [facility] w/c van with 02 @ 1330 @ $ 193. Patient daughter will make the payment prior to d/c to [place]. The bedside nurse will call report.Electronically signed by Tyler Bravo RN at 2018 12:22 PM Nyla Boss RN - 03/07/2019 11:24 AM ESTCase management contacted nurse with plan for discharge to rehab today. This RN called MD with concern that patient has not had bowel movement since 02/28. Patient given PRN medications yesterday and today. MD states this is normal bowel pattern for this patient and will not prevent his discharge. MD recommends giving suppository now. Please see MAR. ToMiguel lee RN - 03/06/2019 7:13 PM JAMES have this pt from 1500 to 1900 and I agree with previous senior it engineer. Tyler Pickens RN - 03/06/2019 3:44 PM ESTCM met with patient and family this afternoon. Patient recommended for STR. Patient launched in [facility] per family request, as they prefer closer to home. CM will continue to follow. AshaJojoer - 03/06/2019 12:12 PM ESTPhysical Therapy Acute Care Encounter Note Medical Diagnosis: intraventricular hemorrhage Rehabilitation Precautions/Restrictions: OOB with assistance. DNR/DNI. Moderate fall risk. SBP below 140mmHg. HR 50-100bpm. Goal Review Visit Number: 2 SUBJECTIVE Patient Report: Pt was agreeable to restorative therapy session. Pt di report an increase in dizziness when standing up and performing transfers to and from bed/chair. Pt also reported that doctor told him to bump up to (3L) supplemental oxygen when performing activities such as ambulation. Pain: Patient has no complaints of pain currently. Pain Medication Today: no. OBJECTIVE General Observation: Pt was encountered sleeping reclined in chair. Once awake pt was alert and able to recall seeing PT last week. (+) supplemental humidified oxygen (2L), (+) Rod Catheder. Chair alarm was on at start of session. Skin Integrity Screen: all visible skin intact, pt has dariusz bruising throughout dorsal and ventral UE more significant on dorsal aspect of forearm and hands. Vital Signs: Oxygen saturation after 10ft walk (3L supplemental oxygen) = 95% Oxygen saturation after 80ft walk (3L supplemental oxygen) = 94% Functional Status: Transfers: Patient transferred from sit to stand requiring minimal assistance of 1 person. Patient used the following equipment: rolling walker. Patient used the following equipment: Transfer belt. Pt used Dariusz UE in order to push off of chair to stand upright to rolling walker. Bed Mobility: Not assessed. Locomotion/Gait/Ambulation: Patient was contact guard with gait/ambulation of 1 person for 1 bout 10ft, 2 bouts of 80ft. . Patient requires the following assistive device(s): Rolling walker. Gait belt. Pt displayed decreased gait speed as well as kypotic posture with reliance on Dariusz UE support from rolling walker. Stairs: Not assessed. Outcome Measures: [facility] AM-PAC "6 Clicks" Basic Mobility Inpatient Short Form: Turning over in bed: Unable to perform (1) Sitting down on and standing up from a chair with arms: Unable to perform (1) Moving from lying on back to sitting on the side of the bed: Unable to perform (1) Moving to and from a bed to a chair (including a wheelchair): A little help (3) Walking in hospital room: A little help (3) Climbing 3-5 steps with a railing: A little help (3) Raw Score 12 /24. Interventions: Therapeutic Activities: Interventions were focused on increased exercise endurance as well as general strengthening for carry over to decreased assistance needed to perform ADL. Pt performed transfers as well as ambulation bouts as described above.Pt displayed need for less assistance required to perform sit to/from stand transfers with increased eccentric control when lowering back into his chair. Once standing PT facilitated pre-gait activities, forward/backward stepping with appropriate weight shift for carry over with ambulation. Gait Training: PT facilitated upright posture with tactile cues on posterior thoracic spine to promote increased quality of respiration as well as decreased reliance on Dariusz UE support on rolling walker while ambulating. Pt provided verbal cues on diaphragmatic breathing techniques to ensure oxygen saturation remained in normal range with exercise. Education: Mode of education provided: Explanation. Audience: Patient/family. Education Provided: Safe mobility. Role of PT in neurorehabilitation. Plan of care. Progress made. Response: Indicates understanding. ASSESSMENT Response to Visit: The session was tolerated well. Pt displayed increased exercise tolerance displaying the ability to ambulate multiple bouts as described above with appropriate vital response. Pt did report slight increase in dizziness towards the end of each ambulation bout after sitting down. Dizziness did not effect balance of quality of movement. Chair alarm was on at end of session. Call hatch was in patient's reach at end of session. Pain: Patient has no complaints of pain currently. PLAN Treatment Frequency, Duration and Interventions: Restorative Physical Therapy is recommended for 5x a week for 3 weeks Treatment is to include: Gait Training. Therapeutic Exercise. Therapeutic Activity. Neuromuscular Re-education. Recommended Physical Therapy Follow Up: Upon acute care discharge, the following is currently recommended: Anticipate patient will have inpatient rehab needs beyond the acute stay. vs Home with Home PT pending progress made in the hospital. Will continue to assess as medical condition improves. Equipment Provided: None issued this visit. Visit Number: Today's visit is number 2 Program: Stroke (Therapist may be reached on [employer]) SESSION: Duration: 42 CHARGES: 86902 - CHARGE - PT GAIT TRNG - 15 MIN 2 Units 36980 - CHARGE - PT THERAPEUTIC ACTIVITIES - 15 MIN 1 Units - STROKE VISIT 1 Units Total treatment minutes: 42.00 Minutes Electronically Signed by: Yadira Villalobos PT, 03/06/2019 3:18:45 PM - CoSigned By: Sneha Jay PT, 03/06/2019 4:34:39 PM Mary Osborntanruthie Marti, OT - 03/06/2019 10:31 AM ESTOccupational Therapy Acute Care Encounter Note Medical Diagnosis: Intraventricular hemorrhage. Rehabilitation Precautions/Restrictions: OOB with assistance. DNR/DNI. Moderate fall risk. SBP below 140mmHg. HR 50-100bpm. Goal Review Visit Number: 2 SUBJECTIVE Patient Report: Pt and RN agreeable to OT treatment session, pt reporting he already received assistance getting a full bath this morning. Pain: Patient has no complaints of pain currently. Pain Medication Today: no. OBJECTIVE General Observation: Pt received supine in bed with HOB elevated, NAD. Telemetry. O2 cannula don, but not connected to 2L O2 (CPAP still connected). Rod. Bed alarm was on at start of session. Connected nasal cannula to wall 2L O2, per pt pt has O2 at home and utilizes 2-3L at baseline. RN notified and agreeable. Skin Integrity Screen: All visible skin intact, bruising noted dariusz UE (posterior > anterior). Vital Signs: Heart Rate: 72 beats per minute Self Care/Home Management: Task: Functional bed mobility, supine to sit edge of bed, HOB elevated Provided: CGA, cues . Task: Functional sit <> stand edge of bed/bedside recliner Provided: min assistance x1, cues . Task: Functional SPT, edge of bed to bedside recliner, unsupported Provided: mod assistance x1, cues, posterior lean . Dressing - lower body: Moderate Assistance. don pants seated then standing . Splinting: No splint issued today. Cognitive Test Score: Alert, oriented score = x4, hard of hearing Outcome Measures: [facility] AM-PAC "6 Clicks" Daily Activity Inpatient Short Form: Putting on and taking off regular lower body clothing: A lot of assistance (2) Bathing (including washing, rinsing, and drying): A lot of assistance (2) Toileting (including use of toilet, bedpan, or urinal): A lot of assistance (2) Putting on and taking off regular upper body clothing: A little assistance (3) Taking care of personal grooming such as brushing teeth: A little assistance (3) Eating meals: A little assistance (3) Raw Score: 15 /24 Interventions: Self Care/Home Management: Engaged pt in self-care tasks and functional transitions this session to improve strength, activity tolerance, safety, functional cognition, functional performance patterns, balance, and independence in prep for ADL routine engagement/achievement of functional goals. Facilitated pt through safe functional transitions and LB dressing tasks provided assistance as documented above, cues/coaching to improve posture/safety/maximize pt engagement, grading of task to provide just-right challenge, and therapeutic rest breaks as needed to maximize pt engagement/energy conservation throughout. Education: Mode of education provided: Explanation. Audience: Patient. Education Provided: Role of OT in acute care. POC. Safety. D/C planning . Response: Applied knowledge. Needs practice/reinforcement. Verbalized understanding. ASSESSMENT Response to Visit: The session was tolerated fair, as evidenced by: Patient reported fatigue Pt expressing dizziness throughout. Family present bedside. Pt repositioned reclined in bedside recliner, NAD. All intact and unchanged. Pleasant, cooperative, and motivated throughout. Call hatch was in patient's reach at end of session. Chair alarm was on at end of session. Pain: Patient has no complaints of pain currently. PLAN Treatment Frequency, Duration and Interventions: Restorative Occupational Therapy recommended for 5x/week, for 2 weeks Treatment is to include: Neuromuscular Re-education. Self Care/Home Management. Therapeutic Activity. Therapeutic Exercise. Recommended Occupational Therapy Follow Up: Upon acute care discharge, the following is currently recommended: Anticipate patient will have inpatient rehab needs beyond the acute stay. Visit Number: Today's visit is number 2 Program: Stroke (Therapist may be reached on [employer]) SESSION: Duration: 32 CHARGES: - ORDER - Occupational Therapy Treatment 1 Units 73590 - CHARGE - OT SELF CARE ADL TRAIN-15 MIN 2 Units - STROKE VISIT 1 Units Total treatment minutes: 32.00 Minutes Electronically Signed by: ARMAAN Mendoza/L, 03/06/2019 10:41:53 AM Yazmin Mayo MD - 03/06/2019 6:50 AM EST Stroke Service Progress Note Patient Korey Jaime 1930 PCP Connor Sullivan MD Subjective Mr. Jaime, seen at bedside, stable, has no complains. Neuro exam is intact. Family seen at bedside (daughter), all their questions regarding the discharge disposition, and the follow up appointment. DNR/DNI form signed by the attending Dr. Jerez, after discussed with the patient and family at bedside. Patient understands what means by DNR/DNI, after explained by dr. Jerez, and clearly opted DRN/DNI status. Still waiting for Rehab placement. Will follow up with Neurosurgery clinic on . Planning for CThead before that. And if stable will start of Objective Temp: [36.3 C-36.8 C] 36.3 C Pulse: [65-78] 78 Resp: [18-20] 18 BP: (113-156)/(63-83) 129/79 SpO2: [93 %-96 %] 93 % O2 Therapy: Oxygen O2 Flow Rate (L/min): [2 L/min] 2 L/min Physical Exam General Appearance: in no apparent distress Skin: Normal HEENT: Head: Normocephalic, no lesions, without obvious abnormality. Cardiovascular: normal sinus rhythm, no murmurs, heart sounds normal Respiratory: breath sounds clear and equal bilaterally Gastrointestinal: Bowel sounds present Extremities: extremities normal, atraumatic, no cyanosis or edema Neurological Exam NIH Stroke Scale: Follow-up Assessment Category Patient Score 1a. Level of consciousness (Alert, drowsy, etc.) 0 - Alert 1b. LOC Questions (Month, age) 0 - Both questions correct 1c. LOC Commands (Open, close eyes; make fist, let go) 0 - Performs both tasks correctly 2. Best Gaze (Eyes open- patient follows finger or face) 0 - Normal 3. Visual (Introduce visual stimulus to patients visual field quadrants) 0 - No visual loss 4. Facial palsy (Show teeth, raise eyebrows and squeeze eyes shut) 0 - Normal, symmetrical movements 5a. Motor Arm left 5b. Motor Arm right (Elevate extremity to 90 and score drift/movement) Left: 0- No drift ( extends arm 10sec. w/o drift) Right: 0- No drift (extends arm 10sec. w/o drift) 6a. Motor Leg left 6b. Motor Leg right (Elevate extremity to 30 and score drift/movement) Left: 0- No drift ( extends leg 5 sec w/o drift) Right: 0- No drift (extends leg 5 sec w/o drift) 7. Limb Ataxia (Finger-nose, heel-lomas) 0 - Absent 8. Sensory (Pin prick to face, arm trunk, and leg- compare side to side) 0 - Normal 9. Best Language (Name items, describes a picture, reads sentence) 0 - No aphasia 10. Dysarthria (Evaluate speech clarity by patient repeating listed words) 0 - Normal articulation 11. Extinction and Inattention (Use information from prior testing to identify neglect or double simultaneous stimuli testing) 0 -No neglect Total Score: 0 NEUROLOGIC EXAMINATION: Mental status: Level of alertness: Attention: Able to focus and sustain attention. Regards examiner. Language: Auditory comprehension:Intact Speech output: Fluent and grammatically correct Naming: Preserved Repetition: Intact. Cranial nerves: CN II:Direct pupillary reaction to light normal. Visual philippe full CN III- : All extraocular movements were intact and no nystagmus noted CN V:Facial sensation was normal and symmetric CN VII: Facial expression was symmetric CN VIII: Finger rub response was normal bilaterally CN IX: Uvula elevates bilaterally CN XI: Shoulder shrug normal CN XII: Tongue protrusion was midline Sensory exam: Pinprick preserved bilaterally Vibratory sensation: Preserved proximally and distally. Motor exam: Proximal Distal Right Upper extremity 5 5 Left Upper extremity 5 5 Proximal Distal Right lower extremity 5 5 Left Lower extremity 5 5 Cerebellar Exam: Finger to nose Right Upper extremity intact Left Upper extremity intact Telemetry Diagnostics CT head without contrast: 03/04/2019 There is no significant change in intraventricular hemorrhage within the lateral ventricles, right greater than left. There are no new hemorrhages. No subdural hematomas or subarachnoid hemorrhage is shown. Areas of decreased attenuation in the periventricular and subcortical white matter bilaterallyconsistent with small vessel ischemic disease are again shown. Mild generalized cerebral volume losswith commensurate enlargement of the ventricles and sulci is also unchanged. The basal cisterns arepatent. There is no evidence of acute territorial infarction. No shift of the midline structures is shown. Atherosclerotic disease in the cavernous and supraclinoid segments of the internal carotid arteries is also again shown. Mucosal thickening in the left frontal sinuses and posterior ethmoid air cells is unchanged. Imagedportions of the remaining paranasal sinuses and mastoid air cells are clear. IMPRESSION: No significant change in hemorrhage within the left and right lateral ventricles. There are no new hemorrhages. CTA H/N: 03/03/2019 Bilateral intracranial internal carotid arteries are patent. There are atherosclerotic ossificationswithin the intracranial ICAs without significant stenosis. Bilateral anterior cerebral and anteriorcommunicating arteries are patent. Bilateral middle cerebral arteries are patent. Bilateral intracranial vertebral arteries and basilar artery are patent. Bilateral posterior cerebral arteries are patent. There is origin of the right RN OUTPATIENT SURGERY. No large intracerebral artery aneurysmis visualized. There is no arteriovenous malformation. IMPRESSION: 1. Intraventricular hemorrhage is present in the bilateral lateral ventricles. No intracerebral arterial aneurysms. 2. Bilateral common carotid, internal carotid, and vertebral arteries are patent without hemodynamically significant stenosis. 3. Arteries of the [place] are patent. 4. Right thyroid lobe nodule measures 1.3cm. Recommend ultrasound can be obtained on nonurgent basis. 5. Emphysematous changes in the bilateral lung apices. Medications Current Facility-Administered Medications Medication Dose Route Frequency Provider Last Rate Last Dose acetaminophen (TYLENOL) tablet 650 mg 650 mg Oral Q6H PRN Issac Becker MD 650 mg at 03/05/19 1644 albuterol (PROVENTIL HFA;VENTOLIN HFA) inhaler 2 puff 2 puff Inhalation Q6H PRN Henrietta Jones MD allopurinol (ZYLOPRIM) tablet 300 mg 300 mg Oral Daily Henrietta Jones MD 300 mg at 03/05/19 1015 calcium gluconate in NaCl 0.9 % infusion 2 g/50 mL 2 g Intravenous Q1H PRN Henrietta Jones MD 50 mL/hr at 03/03/19 1330 2 g at 03/03/19 1330 diltiazem (CARDIZEM CD) 24 hr capsule 180 mg 180 mg Oral Daily Henrietta Jones MD 180 mg at 03/05/19 1014 docusate sodium (COLACE) capsule 100 mg 100 mg Oral BID Henrietta Jones MD 100 mg at 03/05/192111 fluticasone (FLOVENT HFA) 44 MCG/ACT inhaler 2 puff 2 puff Inhalation 2 Times Daily Babs Horner PharmD 2 puff at 03/05/192120 hydrALAZINE (APRESOLINE) injection 10 mg 10 mg Intravenous Q6H PRN ROJELIO Pineda 10 mg at 03/05/192216 labetalol (NORMODYNE,TRANDATE) injection 10 mg 10 mg Intravenous Q6H PRN Henrietta Jones MD 10 mg at 03/04/192044 lidocaine (XYLOCAINE) 5 % ointment Topical 4x Daily PRN Henrietta Jones MD magnesium sulfate infusion 2 g/50 mL (premix) 16 mEq Intravenous Q1H PRN Henrietta Jones MD 50 mL/hr at 03/03/19 0609 16 mEq at 03/03/19 0609 mirtazapine (REMERON) tablet 15 mg 15 mg Oral Nightly Tea MD Robert 15 mg at 03/05/192111 niCARdipine (CARDENE) 40 mg in sodium chloride 0.9 % 200 mL infusion ( 0.2 mg/mL) 5-15 mg/hr Intravenous Continuous Tea MD Robert Stopped at 03/03/19 1200 ondansetron (ZOFRAN) injection 4 mg 4 mg Intravenous Q8H PRN Issac Becker MD 4 mg at 03/03/19 1022 pantoprazole (PROTONIX) EC tablet 20 mg 20 mg Oral Daily Henrietta Jones MD 20 mg at 03/05/19 1017 potassium chloride 20 mEq in 50 mL IVPB (premix) 20 mEq Intravenous Q1H PRN Henrietta Jones MD Or potassium chloride 10 mEq in 100 mL IVPB (premix) 10 mEq Intravenous Q1H PRN Henrietta Jones MD potassium phosphate infusion 12 mmol/100 mL (central line) 12 mmol Intravenous Q2H PRN Henrietta Jones MD Or potassium phosphate infusion 6 mmol/100 mL 6 mmol Intravenous Q2H PRN Henrietta Jones MD predniSONE (DELTASONE) tablet 5 mg 5 mg Oral Daily Tea MD Robert 5 mg at senna (SENOKOT) syrup 10 mL 10 mL Oral Nightly PRN Henrietta Jones MD senna 8.6 MG 2 tablet 2 tablet Oral Nightly PRN Henrietta Jones MD 2 tablet at 03/05/192111 sodium phosphate 12 mmol/100 mL IVPB (central line) 12 mmol Intravenous Q2H PRN Henrietta Jones MD Or sodium phosphate 6 mmol/100 mL IVPB 6 mmol Intravenous Q2H PRN Henrietta Jones MD spironolactone (ALDACTONE) tablet 25 mg 25 mg Oral Daily Tea MD Robert 25 mg at 03/05/19 1016 tamsulosin (FLOMAX) capsule 0.4 mg 0.4 mg Oral Daily Henrietta Jones MD 0.4 mg at 03/05/19 1016 tiotropium (SPIRIVA RESPIMAT) inhalation spray 2 puff 2 puff Inhalation Daily Emilia Trevizo MD Assessment & Plan Korey guerrero 88 y.o.malewith history of hypertension, atrial fibrillation on warfarin, s/p pacemaker/ICD, COPDand Asthma(2L of O2 at home), BPH, GERD, Arthritis, Depression, former smoker who admitted for non trumatic intraventricular hemorrhage (INR was 1.98), S/P Vitamin K 10mg IV once and prothrombin complex concentrate [address] head is stable. # New onset of Headache + Nauseas + Gait difficulties Etiology Non traumatic Intraventricular hemorrhage: In the setting of drug induced coagulopathy (Coumadin) -Repeat CT head is stable (03/04/2019) -Maintain SBP < 140 -Hold anticoagulation for now - Will repeat CT of head before 2018 and will follow up with Neurosurgery for clearance to restart anticoagulation. They agreed with Eliquis instead of Coumadin. -PT/OT # Hypertension -Continue home diltiazem 180 mg daily -Maintain SBP 100-140 -PRN labetalol, hydralazine # Atrial fibrillation with normal ventricular response -Hold anticoagulation for now. Will repeat CT of head before 2018 and will follow up with Neurosurgery for clearance to restart anticoagulation. They agreed with Eliquis instead of Coumadin. Patient and his daughter at [facility] were explained by Dr Jerez that at the present time we can notstart anticoagulation given the risk of what includes, but is not limited to increased intrcranial hemorrhage and . At the same time given the fact that he has A fib and is off anticoagulation he has a higher risk of what includes but is not limited of cardio embolic strokes, cardio embolic events, neurological disability. Both manifested full understanding and agreed with continue to hold anticoagulation -s/p pacemaker/ICD -[id number] score = 3 (Age, hypertension) -HASBLED = 2 (Age, bleed) -Patient may be a candidate for DOA DVT Prophylaxis:SCD; hold pharmacologic ppx due to bleeding GI Prophylaxis:not needed Disposition: Pending rehab placement Code Status:DNR/DNI Patient was seen and discussed with my attending Dr. Yazmin Jerez MD and the above plan for formulated together. Vascular Neurology Attending Note: Mr Jaime is an 88 y/o gentleman who was initially admitted on March 03, 2019 to the Neuro ICU under the care of Dr Morales due to intraventricular hemorrhage. Per Medical documentation in H and P one week prior to presenting to [facility] he was complaining of headache, nauseas, decreased intake and difficulties with ambulation. Patient was taken to his PCP, transferee to outside hospital from where [facility] Cerebrovascular risk factors: Hypertension Atrial fibrillation on Coumadin: INR at time of admission was 1.98, Received Vitamin K and prothrombin complex concentrate before transferring to [facility]. Obstructive Sleep apnea REVIEW of WORK UP: CT of Head: March 04 2019 FINDINGS: There is no significant change in intraventricular hemorrhage within the lateral ventricles, right greater than left. There are no new hemorrhages. No subdural hematomas or subarachnoid hemorrhage is shown. Areas of decreased attenuation in the periventricular and subcortical white matter bilaterallyconsistent with small vessel ischemic disease are again shown. Mild generalized cerebral volume losswith commensurate enlargement of the ventricles and sulci is also unchanged. The basal cisterns arepatent. There is no evidence of acute territorial infarction. No shift of the midline structures is shown. Atherosclerotic disease in the cavernous and supraclinoid segments of the internal carotid arteries is also again shown. Mucosal thickening in the left frontal sinuses and posterior ethmoid air cells is unchanged. Imagedportions of the remaining paranasal sinuses and mastoid air cells are clear. IMPRESSION: No significant change in hemorrhage within the left and right lateral ventricles. There are no new hemorrhages. CTA of Head and Neck: Mar 04 2019 IMPRESSION: 1. Intraventricular hemorrhage is present in the bilateral lateral ventricles. No intracerebral arterial aneurysms. 2. Bilateral common carotid, internal carotid, and vertebral arteries are patent without hemodynamically significant stenosis. 3. Arteries of the [place] are patent. 4. Right thyroid lobe nodule measures 1.3cm. Recommend ultrasound can be obtained on nonurgent basis. 5. Emphysematous changes in the bilateral lung apices. Assessment: # New onset of Headache + Nauseas + Gait difficulties Etiology Non traumatic Intraventricular hemorrhage: In the setting of drug induced coagulopathy (Coumadin) # Atrial fibrillation: On Coumadin prior to the event. # Thyroid Nodule: To be followed by PCP - Current neurological condition, clinical findings, imaging studies, work up results and proposed plan of care were discussed in detail with Mr Jaime, his daughter and son at bedside. All manifested full understanding and were in agreement with the treatment plan. All were provided with the ample opportunity to ask questions and all of them were answered to theirentire satisfaction. I Yazmin Jerez MD obtained the history and performed physical examination of Mr Korey Jaime On March 06 2019 The clinical case was discussed at length during clinical rounds with Dr Chintan Jaquez and the treatment plan was formulated together. I have reviewed the resident's note and I am in agreement with its content. Yazmin Jerez MD. Jacqueline Booker RN - 03/05/2019 6:29 PM ESTResumed care of pt at 1600 until 1900. Assessment unchanged. Pt complaining of headache. Acetaminophen given with improvement. Hydralazine given x1 for SBP >140 with positive effect. Previous nurse paged for continued urinary retention/ st cathing. Per report pt was st cath'd this AM for over 1L. ordered rod. Rod placed w/ 2 RNs @ bedside with no complications. Liseth/ clear urine present. Daughter called this evening and was updated. VSJacqueline Muhammad Abdullahi Arambula MD - 03/05/2019 4:25 PM ESTPatient has recurrent straight cath with large volume retention. Flomax started ~2 days ago. Rod placed for urinary retention. Patient can be referred to outpatient urology for follow up if he does not already have a urologist. Abdullahi Mendiola MD MA PGY2 Neurology Yanna Sams RN - 03/05/2019 11:20 AM EST Pt bladder scan @[address] cath for 1400 cc @ 0815 Daughter called requesting His puffers to be ordered that he was on @ home States he hasn't had them since Dr Trevizo notified and ordered his medication Emilia Blunt MD - 03/05/2019 11:00 AM EST Stroke Service Progress Note Patient Korey Jaime 1930 PCP Connor Sullivan MD Subjective Patient was seen and examined at bedside today, lying supine in bed with HOB elevated at 30 degrees.When I entered the room patient was wearing his CPAP machine, resting comfortably under a blue velvet blanket. Patient slept well overnight and had no acute complaints this AM. There were no acute events overnight. The patient's past medical history, social history and family history are unchanged from prior assessment. Objective Temp: [36.4 C (97.6 F)-37.6 C (99.6 F)] 36.8 C (98.2 F) Pulse: [61-90] 70 Resp: [18-20] 18 BP: (112-161)/(67-85) 113/68 SpO2: [93 %-96 %] 96 % O2 Therapy: Room air O2 Flow Rate (L/min): [2 L/min] 2 L/min Physical Exam General Appearance: in no apparent distress Skin: Normal HEENT: Head: Normocephalic, no lesions, without obvious abnormality. Cardiovascular: normal sinus rhythm Respiratory: CPAP on, breathing comfortably Gastrointestinal: distended secondary to body habitus Extremities: extremities normal, atraumatic Neurological Exam NIH Stroke Scale: Follow-up Assessment Category Patient Score 1a. Level of consciousness (Alert, drowsy, etc.) 0 - Alert 1b. LOC Questions (Month, age) 0 - Both questions correct 1c. LOC Commands (Open, close eyes; make fist, let go) 0 - Performs both tasks correctly 2. Best Gaze (Eyes open- patient follows finger or face) 0 - Normal 3. Visual (Introduce visual stimulus to patients visual field quadrants) 0 - No visual loss 4. Facial palsy (Show teeth, raise eyebrows and squeeze eyes shut) 0 - Normal, symmetrical movements 5a. Motor Arm left 5b. Motor Arm right (Elevate extremity to 90 and score drift/movement) Left: 0- No drift ( extends arm 10sec. w/o drift) Right: 0- No drift (extends arm 10sec. w/o drift) 6a. Motor Leg left 6b. Motor Leg right (Elevate extremity to 30 and score drift/movement) Left: 0- No drift ( extends leg 5 sec w/o drift) Right: 0- No drift (extends leg 5 sec w/o drift) 7. Limb Ataxia (Finger-nose, heel-lomas) 0 - Absent 8. Sensory (Pin prick to face, arm trunk, and leg- compare side to side) 0 - Normal 9. Best Language (Name items, describes a picture, reads sentence) 0 - No aphasia 10. Dysarthria (Evaluate speech clarity by patient repeating listed words) 0 - Normal articulation 11. Extinction and Inattention (Use information from prior testing to identify neglect or double simultaneous stimuli testing) 0 -No neglect Total Score: 0 NEUROLOGIC EXAMINATION: Mental status: awake, alert to voice Attention: Able to focus and sustain attention. Regards examiner. Language: Auditory comprehension:Intact Speech output: Fluent and grammatically correct Naming: Preserved Repetition: Intact. Cranial nerves: CN II:Direct pupillary reaction to light normal. Visual philippe full CN III- : All extraocular movements were intact and no nystagmus noted CN V:Facial sensation was normal and symmetric CN VII: Facial expression was symmetric CN XII: Tongue protrusion was midline Sensory exam: LT preserved bilaterally Motor exam: Proximal Distal Right Upper extremity 5 5 Left Upper extremity 5 5 Proximal Distal Right lower extremity 5 5 Left Lower extremity 5 5 Telemetry Irregularly irregular; AFib Diagnostics Ct Head Without Contrast: 03/04/2019 No significant change in hemorrhage within the left and right lateral ventricles. There are no new hemorrhages. Ct Angiography Neck/Head: 03/03/2019 1. Intraventricular hemorrhage is present in the bilateral lateral ventricles. No intracerebral arterial aneurysms. 2. Bilateral common carotid, internal carotid, and vertebral arteries are patent without hemodynamically significant stenosis. 3. Arteries of the [place] are patent. 4. Right thyroid lobe nodule measures 1.3cm. Recommend ultrasound can be obtained on nonurgent basis. 5. Emphysematous changes in the bilateral lung apices. Medications Medication Dose Route Frequency acetaminophen (TYLENOL) tablet 650 mg 650 mg Oral Q6H PRN albuterol (PROVENTIL HFA;VENTOLIN HFA) inhaler 2 puff 2 puff Inhalation Q6H PRN allopurinol (ZYLOPRIM) tablet 300 mg 300 mg Oral Daily calcium gluconate in NaCl 0.9 % infusion 2 g/50 mL 2 g Intravenous Q1H PRN diltiazem (CARDIZEM CD) 24 hr capsule 180 mg 180 mg Oral Daily docusate sodium (COLACE) capsule 100 mg 100 mg Oral BID fluticasone (FLOVENT HFA) 44 MCG/ACT inhaler 2 puff 2 puff Inhalation 2 Times Daily hydrALAZINE (APRESOLINE) injection 10 mg 10 mg Intravenous Q6H PRN ipratropium-albuterol (DUONEB) 0.5-2.5 (3) MG/3ML nebulizer solution 3 mL 3 mL Nebulization Daily labetalol (NORMODYNE,TRANDATE) injection 10 mg 10 mg Intravenous Q6H PRN lidocaine (XYLOCAINE) 5 % ointment Topical 4x Daily PRN magnesium sulfate infusion 2 g/50 mL (premix) 16 mEq Intravenous Q1H PRN mirtazapine (REMERON) tablet 15 mg 15 mg Oral Nightly niCARdipine (CARDENE) 40 mg in sodium chloride 0.9 % 200 mL infusion ( 0.2 mg/mL) 5-15 mg/hr Intravenous Continuous ondansetron (ZOFRAN) injection 4 mg 4 mg Intravenous Q8H PRN pantoprazole (PROTONIX) EC tablet 20 mg 20 mg Oral Daily potassium chloride 20 mEq in 50 mL IVPB (premix) 20 mEq Intravenous Q1H PRN potassium chloride 10 mEq in 100 mL IVPB (premix) 10 mEq Intravenous Q1H PRN potassium phosphate infusion 12 mmol/100 mL (central line) 12 mmol Intravenous Q2H PRN potassium phosphate infusion 6 mmol/100 mL 6 mmol Intravenous Q2H PRN predniSONE (DELTASONE) tablet 5 mg 5 mg Oral Daily senna (SENOKOT) syrup 10 mL 10 mL Oral Nightly PRN senna 8.6 MG 2 tablet 2 tablet Oral Nightly PRN sodium phosphate 12 mmol/100 mL IVPB (central line) 12 mmol Intravenous Q2H PRN sodium phosphate 6 mmol/100 mL IVPB 6 mmol Intravenous Q2H PRN spironolactone (ALDACTONE) tablet 25 mg 25 mg Oral Daily tamsulosin (FLOMAX) capsule 0.4 mg 0.4 mg Oral Daily [START ON 03/06/2019] tiotropium (SPIRIVA RESPIMAT) inhalation spray 2 puff 2 puff Inhalation Daily Assessment & Plan Korey Patel a 88 y.o.malewith history of hypertension, atrial fibrillation on warfarin, s/p pacemaker/ICD, COPDand Asthma(2L of O2 at home), BPH, Arthritis, Depression, formersmoker who admitted for non trumatic, spontaneous intraventricular hemorrhage (INR was 1.98), reversed on arrival. Repeat CT head is stable. Diagnosis Non traumatic, spontaneous bilateral IVH Workup: CTA H/N 03/03: Bilateral common carotid, internal carotid, and vertebral arteries patent without HDSS. CTH 03/04: No significant change in hemorrhage within the left and right lateral ventricles Plan: AC/AP: will hold home warfarin for 2 weeks. Repeat CTH outpatient with NSGY and if stable will consider replacing warfarin with NOAC. BP: goal SBP <140. 24hr 112-162, mode 130s. Continue home diltiazem 180mg daily DVT Prophylaxis: SCD's while in bed GI Prophylaxis: Not Indicated Code Status: DNR/DNI Diet: regular diet Disposition: Plan discharge to: Rehab Estimated Discharge Date: tomorrow Patient seen and examined. Case discussed with Dr. Clayton Schmitt and formulated the above plan together. Associated attestation - Clayton Schmitt MBBC - 03/05/2019 4:51 PM JAMES saw and personally examined the patient with the Stroke team on rounds; I personally reviewed thepertinent imaging, ancillary data, discussed the diagnosis, and supervised the formulation of the assessment and plan with the resident team. I agree with the history, exam, assessment and plan outlined in the resident's note except where stated otherwise in the supplemental documentation by myself. The interval workup findings/results and management plan were discussed with the patient. [id number] counseling provided and I attempted to answer all questions and address his concerns. The patientverbalized understanding of our working differential/diagnosis and current plan.Campos Figueroa RN - 2018 2:28 AM ESTAssumed care of patient from [id number]. Pt was receiving IV hydralazine at started of shift. Policy Cancellation Clerk rechecked BP and had increased after PRN hydralazine. PRN Labetalol administered per order, with goodeffect, so SBP & lt; 140. Pt had not urinated by 0000 when due for bladder scan (q8h). Pt stated he did not feel he had to void. Bladder scanned for 862mL. Straight cath'd per order for 1150mL. No further concerns. Campos Figueroa Chintan Shoemaker MBBS - 03/04/2019 6:28 AM EST Stroke Service Progress Note Patient Korey Jaime 1930 PCP Connor Sullivan MD Subjective Mr. Jaime, seen at bedside, alert, oriented x 3, stable. Neuro exam is intact. All his questions answered Repeated CT head, is stable Objective Temp: [36.4 C-37 C] 36.6 C Pulse: [69-78] 70 Resp: [17-27] 18 BP: (101-194)/(43-165) 136/84 SpO2: [91 %-96 %] 96 % O2 Therapy: Oxygen O2 Flow Rate (L/min): [2 L/min] 2 L/min Physical Exam General Appearance: in no apparent distress Skin: Normal HEENT: Head: Normocephalic, no lesions, without obvious abnormality. Cardiovascular: normal sinus rhythm, no murmurs, heart sounds normal Respiratory: breath sounds clear and equal bilaterally Gastrointestinal: Bowel sounds present Extremities: extremities normal, atraumatic, no cyanosis or edema Neurological Exam NIH Stroke Scale: Follow-up Assessment Category Patient Score 1a. Level of consciousness (Alert, drowsy, etc.) 0 - Alert 1b. LOC Questions (Month, age) 0 - Both questions correct 1c. LOC Commands (Open, close eyes; make fist, let go) 0 - Performs both tasks correctly 2. Best Gaze (Eyes open- patient follows finger or face) 0 - Normal 3. Visual (Introduce visual stimulus to patients visual field quadrants) 0 - No visual loss 4. Facial palsy (Show teeth, raise eyebrows and squeeze eyes shut) 0 - Normal, symmetrical movements 5a. Motor Arm left 5b. Motor Arm right (Elevate extremity to 90 and score drift/movement) Left: 0- No drift ( extends arm 10sec. w/o drift) Right: 0- No drift (extends arm 10sec. w/o drift) 6a. Motor Leg left 6b. Motor Leg right (Elevate extremity to 30 and score drift/movement) Left: 0- No drift ( extends leg 5 sec w/o drift) Right: 0- No drift (extends leg 5 sec w/o drift) 7. Limb Ataxia (Finger-nose, heel-lomas) 0 - Absent 8. Sensory (Pin prick to face, arm trunk, and leg- compare side to side) 0 - Normal 9. Best Language (Name items, describes a picture, reads sentence) 0 - No aphasia 10. Dysarthria (Evaluate speech clarity by patient repeating listed words) 0 - Normal articulation 11. Extinction and Inattention (Use information from prior testing to identify neglect or double simultaneous stimuli testing) 0 -No neglect Total Score: 0 NEUROLOGIC EXAMINATION: Mental status: Level of alertness: Attention: Able to focus and sustain attention. Regards examiner. Language: Auditory comprehension:Intact Speech output: Fluent and grammatically correct Naming: Preserved Repetition: Intact. Cranial nerves: CN II:Direct pupillary reaction to light normal. Visual philippe full CN III- : All extraocular movements were intact and no nystagmus noted CN V:Facial sensation was normal and symmetric CN VII: Facial expression was symmetric CN VIII: Finger rub response was normal bilaterally CN IX: Uvula elevates bilaterally CN XI: Shoulder shrug normal CN XII: Tongue protrusion was midline Sensory exam: Pinprick preserved bilaterally Vibratory sensation: Preserved proximally and distally. Motor exam: Proximal Distal Right Upper extremity 5 5 Left Upper extremity 5 5 Proximal Distal Right lower extremity 5 5 Left Lower extremity 5 5 Cerebellar Exam: Finger to nose Right Upper extremity intact Left Upper extremity intact Diagnostics Head CT 03/03/2019: IMPRESSION: No significant change in hemorrhage within the left and right lateral ventricles. There are no new hemorrhages. Medications Current Facility-Administered Medications Medication Dose Route Frequency Provider Last Rate Last Dose acetaminophen (TYLENOL) tablet 650 mg 650 mg Oral Q6H PRN Issac Becker MD 650 mg at 03/04/19 0606 albuterol (PROVENTIL HFA;VENTOLIN HFA) inhaler 2 puff 2 puff Inhalation Q6H PRN Henrietta Jones MD allopurinol (ZYLOPRIM) tablet 300 mg 300 mg Oral Daily Henrietta Jones MD 300 mg at 03/03/19 0821 calcium gluconate in NaCl 0.9 % infusion 2 g/50 mL 2 g Intravenous Q1H PRN Henrietta Jones MD 50 mL/hr at 03/03/19 1330 2 g at 03/03/19 1330 diltiazem (CARDIZEM CD) 24 hr capsule 180 mg 180 mg Oral Daily Henrietta Jones MD docusate sodium (COLACE) capsule 100 mg 100 mg Oral BID Henrietta Jones MD 100 mg at 03/03/19 2028 hydrALAZINE (APRESOLINE) injection 10 mg 10 mg Intravenous Q6H PRN Henrietta Jones MD 10 mg at 03/03/19 0539 ipratropium-albuterol (DUONEB) 0.5-2.5 (3) MG/3ML nebulizer solution 3 mL 3 mL Nebulization Daily Henrietta Jones MD 3 mL at 03/03/19 0805 labetalol (NORMODYNE,TRANDATE) injection 10 mg 10 mg Intravenous Q6H PRN Henrietta Jones MD 10 mg at 03/03/19 0047 lidocaine (XYLOCAINE) 5 % ointment Topical 4x Daily PRN Henrietta Jones MD magnesium sulfate infusion 2 g/50 mL (premix) 16 mEq Intravenous Q1H PRN Henrietta Jones MD 50 mL/hr at 03/03/19608 16 mEq at 03/03/19 06 mirtazapine (REMERON) tablet 15 mg 15 mg Oral Nightly Henrietta Jones MD 15 mg at 03/03/192028 niCARdipine (CARDENE) 40 mg in sodium chloride 0.9 % 200 mL infusion ( 0.2 mg/mL) 5-15 mg/hr Intravenous Continuous Henrietta Jones MD Stopped at 03/03/191199 ondansetron (ZOFRAN) injection 4 mg 4 mg Intravenous Q8H PRN Issac Becker MD 4 mg at 03/03/19 102 pantoprazole (PROTONIX) EC tablet 20 mg 20 mg Oral Daily Henrietta Jones MD 20 mg at 03/03/19820 potassium chloride 20 mEq in 50 mL IVPB (premix) 20 mEq Intravenous Q1H PRN Henrietta Jones MD Or potassium chloride 10 mEq in 100 mL IVPB (premix) 10 mEq Intravenous Q1H PRN Hernietta Jones MD potassium phosphate infusion 12 mmol/100 mL (central line) 12 mmol Intravenous Q2H PRN Henrietta Jones MD Or potassium phosphate infusion 6 mmol/100 mL 6 mmol Intravenous Q2H PRN Henrietta Jones MD predniSONE (DELTASONE) tablet 5 mg 5 mg Oral Daily Henrietta Jones MD 5 mg at senna (SENOKOT) syrup 10 mL 10 mL Oral Nightly PRN Henrietta Jones MD senna 8.6 MG 2 tablet 2 tablet Oral Nightly PRN Henrietta Jones MD sodium phosphate 12 mmol/100 mL IVPB (central line) 12 mmol Intravenous Q2H PRN Henrietta Jones MD Or sodium phosphate 6 mmol/100 mL IVPB 6 mmol Intravenous Q2H PRN Henrietta Jones MD spironolactone (ALDACTONE) tablet 25 mg 25 mg Oral Daily Henrietta Jones MD 25 mg at 03/03/19 08 tamsulosin (FLOMAX) capsule 0.4 mg 0.4 mg Oral Daily Henrietta Jones MD 0.4 mg at 03/03/19 0822 Assessment & Plan Korey Patel a 88 y.o.malewith history of hypertension, atrial fibrillation on warfarin, s/p pacemaker/ICD, COPDand Asthma(2L of O2 at home), BPH, GERD, Arthritis, Depression, former smoker who admitted for non trumatic intraventricular hemorrhage (INR was 1.98), S/P Vitamin K 10mg IV once and prothrombin complex concentrate [address] head is stable. Nontraumatic intraventricular hemorrhage secondary to anticoagulation -Repeat CT head today is stable -Maintain SBP < 140 -Hold anticoagulation for now -Planning to follow up with Neurosurgery clinic in 2 weeks, with repeat CT head -Planning to start him on Eliquis after cleared by neurosurgery in 2 weeks -PT/OT -Decrease the blood work to each other day Hypertension -Continue home diltiazem 180 mg daily -Maintain SBP 100-140 -PRN labetalol, hydralazine Atrial fibrillation with normal ventricular response -Hold anticoagulation for now -s/p pacemaker/ICD -[id number] score = 3 (Age, hypertension) -HASBLED = 2 (Age, bleed) -Patient may be a candidate for DOA Prophylaxis: DVT Prophylaxis: SCD; hold pharmacologic ppx due to bleeding GI Prophylaxis: not needed Seizure Prophylaxis: None Code Status: DNR/DNI Patient was seen and discussed with my attending Dr. Oskar MD and the above plan for formulated together. Associated attestation - Clayton Schmitt M[facility] - 03/05/2019 4:44 PM JAMES saw and personally examined the patient with the Stroke team on rounds; I personally reviewed thepertinent imaging, ancillary data, discussed the diagnosis, and supervised the formulation of the assessment and plan with the resident team. I agree with the history, exam, assessment and plan outlined in the resident's note except where stated otherwise in the supplemental documentation by myself. The interval workup findings/results and management plan were discussed with the patient. [id number] counseling provided and I attempted to answer all questions and address his concerns. The patient verbalized understanding of our working differential/diagnosis and current plan.Virgil Braxton RN - 2018 2:20 AM ESTCare assumed of pt at 0000, transferred to 09 @ 0200. Bedside report given prior to GAVIN Vail. Pt transported on 2L nasal cannula, replaced on 2L CPAP per home settings by RT in G36. Pt transferred with dentures. Accepting RN aware of CT scan ordered for 0400. Virgil Braxton 03/04/2019 2:21 AM Barbra Mcqueen RN - 03/03/2019 3:05 PM ESTCase Management Screen & Assessment Patient's Name: Korey Jaime Date of : 1930 Age: 88 y.o. Gender: male Attending Provider: Haja Morales MD Admitting Diagnosis: intraventricular hemorrhage Intraventricular hemorrhage Admission Date and Time: 03/02/2019 9:00 PM High Risk Criteria - ACQUISITIONS ANALYST/Upon Arrival ACQUISITIONS ANALYST-Type of Residence: Private residence ACQUISITIONS ANALYST- Home Care Services: Yes ACQUISITIONS ANALYST- Type of Home Care Services: Nurse visit Limited Home Supports/Lives Alone?: No Multi trauma/Critical care admit?: Yes Head/Spinal cord injury?: No Self pay/No prescription plan?: No Active with homecare?: No Multiple ED visits?: No Related/Unplanned readmission within 30 days?: No Complex/New medical issues: Spontaneous intraventricular hemorrhage Relevant comorbidities: hypertension, atrial fibrillation, s/p pacemaker/ICD, COPD, Asthma), BPH, GERD, Arthritis, Depression, former smoker CM Screen Outcome Lens Cutter Screen Outcome: Meets high risk criteria for active case management director intervention Patient/Agent informed of choice and given written list?: Patient/agent declined list Important message (Medicare rights) given?: Yes Date Given: 03/03/19 CM Chart Review Notice of Privacy Practice Signed?: Yes Self Pay: No Prescription Plan?: Yes (comment) Pt. 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: Functional/Environmental Assessment Came from Rehab/SNF, plan to return?: No Brief physical/psychosocial summary: Patient lives at home alone Bathing: Independent Dressing: Independent Toileting: Independent Medication administration: Independent Transfers: Independent Ambulation: Independent Meal preparation: Independent Number of stairs into home: 3 Number of stairs to bathroom: 0 Number of stairs to bedroom: 14 Durable Medical Equipment (DME): Walker, Cane, Respiratory(Home 02 2L at all times supplied by [facility] ) Case Management Review Date CM re-review date needed?: Yes Case Management Review Date: 03/10/19 Discharge Assessment Patient/family informed of need for discharge planning?: Yes Patient/Agent informed of choice and given written list?: Patient/agent declined list Patient expects to be discharged to:: Home vs Rehab Actual discharge location : Home-No Needs Has discharge transport been arranged?: No transport arrangement necessary Home with support services reinstated?: Yes Living Arrangements: Alone Support Systems: Children, Family members, Friends/neighbors Type of Residence: Private residence Home services arranged?: No Note: CM met wit patient at bedside, introduced self and CM role. Patient states he lives at home alone and he is independent with ADL's. Patient states he uses walker and cane for ambulation. Patient states he has home care nurses from [facility] who visits once a month to assist with medications. Patient is here due to Spontaneous intraventricular hemorrhage currently undergoing work up. Physical therapy evaluation is pending at this time. CM will continue to monitor and follow for discharge needs. Barbra Holt MElectronically signed by Barbra Holt RN at 2018 3:13 PM Clari Osborn OT - 03/03/2019 2:42 PM ESTOccupational Therapy Acute Care Missed Visit Note Location: Bedside. Attempted to visit patient for therapy, but was unable for the following reasons: Treatment not completed secondary to scheduling conflict. Pt with RN for extended period of time providing care. Will return as schedule permits and as pt remains appropriate for further OT intervention. (Therapist may be reached on Vocera) SESSION: Duration: 0 CHARGES: - ORDER - OCCUPATIONAL THERAPY CONSULT 1 Units - CHARGE-IP OT SCHEDULING CONFLICT 1 Units Total treatment minutes: 0.00 Minutes Electronically Signed by: JAKE Mendoza, 03/03/2019 2:44:43 PM Steve Jean Baptiste DO - 03/03/2019 2:18 PM ESTBrief progress note Neurosurgery signing off. Recommend follow up in two weeks with ct head without contrast with neurosurgery clinic. Recommend to hold coumadin until follow up. Okay to start DVT ppx 24 hours after repeat head CT Steve Yoo DO Neurosurgery Resident PGY2 03/03/19 2:18 PM Yeni Contreras RN - 03/03/2019 2:20 AM EST 03/03/19 0215 Vitals BP 149/75 MAP (Monitor) 97 Patient with SBP >140 despite receiving both available PRNs; text page placed to Sunitha TURK. Waiting for new orders/interventions at this time ; will continue to monitor. documented in this encounter Plan of Treatment Name Type Priority Associated Diagnoses Order Schedule CT Head without Imaging Routine Intraventricular hemorrhage Expected: Contrast 03/03/2019, Expires: 06/03/2020 documented as of this encounter Procedures Procedure Name Priority Date/Time Associated Comments Diagnosis CBC Timed 03/06/2019 4:05 Results for this AM EST procedure are in the results section. BASIC METABOLIC PANEL Timed 03/06/2019 4:05 Results for this AM EST procedure are in the results section. CT HEAD WITHOUT Routine 03/04/2019 5:56 Results for this CONTRAST 06291 AM EST procedure are in the results section. PROTIME INR Routine 03/04/2019 4:55 Results for this AM EST procedure are in the results section. CBC Routine 03/04/2019 4:55 Results for this AM EST procedure are in the results section. PHOSPHORUS LEVEL Routine 03/04/2019 4:55 Results for this AM EST procedure are in the results section. MAGNESIUM LEVEL Routine 03/04/2019 4:55 Results for this AM EST procedure are in the results section. CALCIUM, IONIZED Routine 03/04/2019 4:55 Results for this AM EST procedure are in the results section. BASIC METABOLIC PANEL Routine 03/04/2019 4:55 Results for this AM EST procedure are in the results section. PROTIME INR Routine 03/03/2019 6:13 Results for this AM EST procedure are in the results section. CBC Routine 03/03/2019 5:32 Results for this AM EST procedure are in the results section. PHOSPHORUS LEVEL Routine 03/03/2019 5:32 Results for this AM EST procedure are in the results section. MAGNESIUM LEVEL Routine 03/03/2019 5:32 Results for this AM EST procedure are in the results section. CALCIUM, IONIZED Routine 03/03/2019 5:32 Results for this AM EST procedure are in the results section. BASIC METABOLIC PANEL Routine 03/03/2019 5:32 Results for this AM EST procedure are in the results section. CT ANGIOGRAPHY NECK Routine 03/03/2019 12:41 Results for this 31827 AM EST procedure are in the results section. CT ANGIOGRAPHY HEAD Routine 03/03/2019 12:41 Results for this [id number] AM EST procedure are in the results section. URINALYSIS WITH REFLEX Routine 03/03/2019 12:15 Results for this URINE CULTURE AM EST procedure are in the results section. PARTIAL THROMBOPLASTIN STAT 03/02/2019 10:40 Results for this TIME (PTT) PM EST procedure are in the results section. PROTIME INR STAT 03/02/2019 10:40 Results for this PM EST procedure are in the results section. CBC AND DIFFERENTIAL STAT 03/02/2019 10:40 Results for this PM EST procedure are in the results section. TYPE AND SCREEN STAT 03/02/2019 10:40 Results for this PM EST procedure are in the results section. PHOSPHORUS LEVEL STAT 03/02/2019 10:40 Results for this PM EST procedure are in the results section. MAGNESIUM LEVEL STAT 03/02/2019 10:40 Results for this PM EST procedure are in the results section. HEMOGLOBIN A1C STAT 03/02/2019 10:40 Results for this PM EST procedure are in the results section. CALCIUM, IONIZED STAT 03/02/2019 10:40 Results for this PM EST procedure are in the results section. HEPATIC FUNCTION PANEL STAT 03/02/2019 10:40 Results for this A PM EST procedure are in the results section. LIPID PANEL STAT 03/02/2019 10:40 Results for this PM EST procedure are in the results section. BASIC METABOLIC PANEL STAT 03/02/2019 10:40 Results for this PM EST procedure are in the results section. documented in this encounter Results CBC (03/06/2019 4:05 AM EST) White Blood Cell 11.1 (H) 4 - 10 10*3/uL [facility] Pathology Red Blood Cell 4.94 4.6 - 6.1 [facility] 10*6/uL [facility] Hemoglobin 15.7 13.5 - 18 g/dL [facility] Hematocrit 47.4 41 - 53 % [facility] Mean Cell Volume 96.0 80 - 96 fL [facility]ology Mean Cell Hemoglobin 31.9 27 - 33 pg [facility] Pathology Mean Cell Hgb Conc 33.2 32.0 - 36.0 [facility] g/dL [facility] Pathology Red Cell Dist Width 15.0 (H) 11.5 - 14.5 % [facility] Pathology Platelet Count 237 150 - 400 [facility] 10*3/uL [facility] Pathology Specimen EDTA Whole Blood Performing Organization Address City/State/[facility] Centercode Phone Number [facility] [address] [place] [address] [facility] [address] [place] [address] Pathology Basic Metabolic Panel (03/06/2019 4:05 AM EST) Bicarbonate 28 22 - 29 [facility] mmol/L [facility] Pathology Chloride 89 (L) 98 - 107 [facility] mmol/L [facility] Pathology Creatinine 0.84 0.70 - 1.20 [facility] mg/dL [facility] Pathology Glucose 109 70 - 140 [facility] mg/dL [facility] Pathology Potassium 4.2 3.4 - 5.1 [facility] mmol/L [facility] Sodium 131 (L) 136 - 145 [facility] mmol/L [facility] Pathology Blood Urea Nitrogen 16 8 - 23 mg/dL [facility] Anion Gap 14 8 - 15 mmol/L [facility]ology Osmolality, Edgardo 274 (L) 275 - 300 [facility] mosm/kg [facility] Pathology BUN/Cre Ratio 19 [facility] Pathology Calcium 8.8 8.8 - 10.2 [facility] mg/dL [facility] Pathology GFR Non eGFR is not >60 [facility] 2008 calculated in mL/min/1.73m2 [facility] CDK-EPI patients <18 or Pathology >80 years of age. GFR eGFR is not >60 [facility] 2008 calculated in mL/min/1.73m2 [facility] CKD-EPI patients <18 or Pathology >80 years of age. Specimen Plasma Performing Organization Address City/State/Zipcode Phone Number [facility] [address], [place] [id number] [phone] [facility] [address] [place] [address] Head without Contrast (03/04/2019 5:56 AM EST) Specimen Impressions Performed At IMPRESSION: No significant change in hemorrhage within the left and [facility] right lateral ventricles. There are no new hemorrhages. Narrative Performed At EXAMINATION: CT HEAD WITHOUT CONTRAST [id number] [facility] CLINICAL INFORMATION: Follow-up of intraventricular hemorrhage TECHNIQUE: Contiguous axial CT images of the head were acquired without intravenous contrast administration from the base of the skull to the vertex and submitted for interpretation. Automated dose lowering techniques and/or adjustment according to patient size were utilized for this examination. COMPARISON: CT of the head dated 03/03/2019. FINDINGS: There is no significant change in intraventricular hemorrhage within the lateral ventricles, right greater than left. There are no new hemorrhages. No subdural hematomas or subarachnoid hemorrhage is shown. Areas of decreased attenuation in the periventricular and subcortical white matter bilaterally consistent with small vessel ischemic disease are again shown. Mild generalized cerebral volume loss with commensurate enlargement of the ventricles and sulci is also unchanged. The basal cisterns are patent. There is no evidence of acute territorial infarction. No shift of the midline structures is shown. Atherosclerotic disease in the cavernous and supraclinoid segments of the internal carotid arteries is also again shown. Mucosal thickening in the left frontal sinuses and posterior ethmoid air cells is unchanged. Imaged portions of the remaining paranasal sinuses and mastoid air cells are clear. Procedure Note Interface, Received Via [employer] - 03/04/2019 3:27 PM EST EXAMINATION: CT HEAD WITHOUT CONTRAST [id number] CLINICAL INFORMATION: Follow-up of intraventricular hemorrhage TECHNIQUE: Contiguous axial CT images of the head were acquired without intravenous contrast administration from the base of the skull to the vertex and submitted for interpretation. Automated dose lowering techniques and/or adjustment according to patient size were utilized for this examination. COMPARISON: CT of the head dated 03/03/2019. FINDINGS: There is no significant change in intraventricular hemorrhage within the lateral ventricles, right greater than left. There are no new hemorrhages. No subdural hematomas or subarachnoid hemorrhage is shown. Areas of decreased attenuation in the periventricular and subcortical white matter bilaterally consistent with small vessel ischemic disease are again shown. Mild generalized cerebral volume loss with commensurate enlargement of the ventricles and sulci is also unchanged. The basal cisterns are patent. There is no evidence of acute territorial infarction. No shift of the midline structures is shown. Atherosclerotic disease in the cavernous and supraclinoid segments of the internal carotid arteries is also again shown. Mucosal thickening in the left frontal sinuses and posterior ethmoid air cells is unchanged. Imaged portions of the remaining paranasal sinuses and mastoid air cells are clear. IMPRESSION: No significant change in hemorrhage within the left and right lateral ventricles. There are no new hemorrhages. Performing Organization Address City/[facility]/Zipcode Phone Number [facility] [address] [place] [address] Protime-INR (03/04/2019 4:55 AM EST) PT Patient 14.4 12.5 - 14.9 [facility] Pathology Int'l Normalized 1.09Comment: Routine [facility] intensity oral [facility] anticoagulation INR is Pathology typically 2.0-3.0. Target INR must be clinically individualized. Specimen Plasma Performing Organization Address [facility] Centercode Phone Number [facility] [address] [place] [address] [facility] [address] [place] [address] Pathology Calcium, ionized (03/04/2019 4:55 AM EST) Calcium Ionized,W.B. 1.06 (L) 1.13 - 1.32 [facility] mmol/L [facility] Specimen Whole Blood Performing Organization Address City/[facility]/Zipcode Phone Number [facility] [address] [place] [address] [facility] [address] [place] [address] Pathology Phosphorus Level (03/04/2019 4:55 AM EST) Phosphorus 3.3 2.5 - 4.5 mg/dL [facility] Specimen Plasma Performing Organization Address [facility] Centercode Phone Number [facility] [address] [place] [address] [facility] [address] [place] [address] Pathology Magnesium Level (03/04/2019 4:55 AM EST) Magnesium 2.2 1.6 - 2.4 mg/dL [facility] Specimen Plasma Performing Organization Address [facility] Centercode Phone Number [facility] [address] [place] [address] [phone] [facility] [address] [place] [address] Pathology Basic Metabolic Panel (03/04/2019 4:55 AM EST) Bicarbonate 25 22 - 29 [facility] mmol/L [facility] Pathology Chloride 92 (L) 98 - 107 [facility] mmol/L [facility] Pathology Creatinine 1.02 0.70 - 1.20 [facility] mg/dL [facility] Pathology Glucose 116 70 - 140 [facility] mg/dL [facility] Pathology Potassium 4.0 3.4 - 5.1 [facility] mmol/L [facility] Pathology Sodium 130 (L) 136 - 145 [facility] mmol/L [facility] Pathology Blood Urea Nitrogen 24 (H) 8 - 23 mg/dL [facility] Anion Gap 13 8 - 15 mmol/L [facility] Pathology Osmolality, Edgardo 275 275 - 300 [facility] mosm/kg [facility] Pathology BUN/Cre Ratio 24 [facility]ology Calcium 8.4 (L) 8.8 - 10.2 [facility] mg/dL [facility] Pathology GFR Non eGFR is not >60 [facility] 2008 calculated in mL/min/1.73m2 [facility] CDK-EPI patients <18 or Pathology >80 years of age. GFR eGFR is not >60 [facility] [employer] 2008 calculated in mL/min/1.73m2 [facility] CKD-EPI patients <18 or Pathology >80 years of age. Specimen Plasma Performing Organization Address City/[facility] Centercode Phone Number [facility] [address] [place] [address] [facility] [address] [place] [address] Pathology CBC (03/04/2019 4:55 AM EST) White Blood Cell 11.5 (H) 4 - 10 10*3/uL [facility] Red Blood Cell 4.69 4.6 - 6.1 [facility] 10*6/uL [facility] Hemoglobin 14.7 13.5 - 18 g/dL [facility] Hematocrit 44.8 41 - 53 % [facility] Mean Cell Volume 95.6 80 - 96 fL [facility] Mean Cell Hemoglobin 31.3 27 - 33 pg [facility] Mean Cell Hgb Conc 32.7 32.0 - 36.0 [facility] g/dL [facility] Pathology Red Cell Dist Width 15.2 (H) 11.5 - 14.5 % [facility] Pathology Platelet Count 211 150 - 400 [facility] 10*3/uL [facility] Pathology Specimen EDTA Whole Blood Performing Organization Address [facility] Centercowy Phone Number [facility] [address] [place] [address] [phone] [facility] [address] [place] [address] Pathology Protime-INR (03/03/2019 6:13 AM EST) PT Patient 13.6 12.5 - 14.9 [facility] Pathology Int'l Normalized 1.01Comment: Routine [facility] Ratio intensity oral [facility] anticoagulation INR is Pathology typically 2.0-3.0. Target INR must be clinically individualized. Specimen Plasma Performing Organization Address [facility] Phone Number [facility] [address] [place] [address] [facility] [address] [place] [address] Pathology Calcium, ionized (03/03/2019 5:32 AM EST) Calcium Ionized,W.B. 1.08 (L) 1.13 - 1.32 [facility] mmol/L [facility] Pathology Specimen Whole Blood Performing Organization Address [facility] Phone Number [facility] [address] [place] [address] [facility] [address] [place] [address] Pathology Phosphorus Level (03/03/2019 5:32 AM EST) Phosphorus 2.9 2.5 - 4.5 mg/dL [facility]ology Specimen Plasma Performing Organization Address City/[facility] Centercode Phone Number [facility] [address] [place] [address] [facility] [address] [place] [address] Pathology Magnesium Level (03/03/2019 5:32 AM EST) Magnesium 2.7 (H) 1.6 - 2.4 mg/dL [facility] Pathology Specimen Plasma Performing Organization Address [facility] Phone Number [facility] [address] [place] [address] [facility] [address] [place] [address] Pathology Basic Metabolic Panel (03/03/2019 5:32 AM EST) Bicarbonate 25 22 - 29 [facility] mmol/L [facility] Pathology Chloride 92 (L) 98 - 107 [facility] mmol/L [facility] Pathology Creatinine 0.84 0.70 - 1.20 [facility] mg/dL [facility] Pathology Glucose 111 70 - 140 [facility] mg/dL [facility] Pathology Potassium 4.0 3.4 - 5.1 [facility] mmol/L [facility] Pathology Sodium 130 (L) 136 - 145 [facility] mmol/L [facility] Pathology Blood Urea Nitrogen 16 8 - 23 mg/dL [facility]ology Anion Gap 13 8 - 15 mmol/L [facility]ology Osmolality, Edgardo 272 (L) 275 - 300 [facility] mosm/kg [facility] Pathology BUN/Cre Ratio 19 [facility] Pathology Calcium 8.7 (L) 8.8 - 10.2 [facility] mg/dL [facility] Pathology GFR Non eGFR is not >60 [facility] 2008 calculated in mL/min/1.73m2 [facility] CDK-EPI patients <18 or Pathology >80 years of age. GFR eGFR is not >60 [facility] [place] 2008 calculated in mL/min/1.73m2 [facility] CKD-EPI patients <18 or Pathology >80 years of age. Specimen Plasma Performing Organization Address City/[facility] Centercode Phone Number [facility] [address] [place] [address] [facility] [address] [place] [address] Pathology CBC (03/03/2019 5:32 AM EST) White Blood Cell 13.9 (H) 4 - 10 10*3/uL [facility] Red Blood Cell 4.98 4.6 - 6.1 [facility] 10*6/uL [facility] Pathology Hemoglobin 15.8 13.5 - 18 g/dL [facility] Pathology Hematocrit 47.7 41 - 53 % [facility] Pathology Mean Cell Volume 95.7 80 - 96 fL [facility] Mean Cell Hemoglobin 31.8 27 - 33 pg [facility] Pathology Mean Cell Hgb Conc 33.2 32.0 - 36.0 [facility] g/dL [facility] Pathology Red Cell Dist Width 15.0 (H) 11.5 - 14.5 % [facility] Pathology Platelet Count 248 150 - 400 [facility] 10*3/uL [facility] Pathology Specimen EDTA Whole Blood Performing Organization Address City/State/Zipcode Phone Number [facility] [address] [place] [address] [facility] [address] [phone] Angiography Neck (03/03/2019 12:41 AM EST) Specimen Impressions Performed At IMPRESSION: [facility] 1. Intraventricular hemorrhage is present in the bilateral lateral ventricles. No intracerebral arterial aneurysms. 2. Bilateral common carotid, internal carotid, and vertebral arteries are patent without hemodynamically significant stenosis. 3. Arteries of the [place] are patent. 4. Right thyroid lobe nodule measures 1.3cm. Recommend ultrasound can be obtained on nonurgent basis. 5. Emphysematous changes in the bilateral lung apices. Narrative Performed At INDICATION: 88-year-old male with intraventricular hemorrhage. [facility] TECHNIQUE: Noncontrast axial computed tomography scans of the head were obtained. A contrast-enhanced multidetector helical CTA of the head and neck were acquired. The degree of the extracranial internal carotid artery stenosis was measured using NASCET criteria. Automated dose lowering techniques and/or adjustment according to patient size were utilized for this exam. COMPARISON: No prior relevant studies are available at the time of this dictation. FINDINGS: NONCONTRAST CT HEAD: Intraventricular hemorrhage is present in the bilateral lateral ventricles more within the right lateral ventricle. The bonilla-white matter differentiation is well preserved. There is no evidence of acute territorial infarction. Periventricular and subcortical nonspecific white matter hypodensities are present consistent with small vessel ischemia. There is no midline shift or mass effect. Prominence of the ventricles and sulci consistent with cortical parenchymal volume loss. Basal cisterns are patent. The calvarium is intact. Extracranial soft tissues are unremarkable. Left frontal and ethmoid sinuses are partially opacified. The mastoid air cells are clear. NECK ANGIOGRAM: Moderate degenerative changes with intervertebral disc space narrowing are present throughout the cervical and upper thoracic spine. Soft tissues of the neck are unremarkable. Nodule is present in the right thyroid lobe measures 1.3 cm.. Emphysematous changes are present in the bilateral lung apices. The arch of the aorta is unremarkable. The origins of the brachiocephalic trunk, left common carotid, and left subclavian arteries are patent. Calcified plaque without hemodynamically significant stenosis is present in the bilateral carotid bulbs. Right internal carotid artery is patent without hemodynamically significant stenosis. Left internal carotid artery is patent without hemodynamically significant stenosis. Bilateral cervical vertebral arteries are patent. Right vertebral artery is dominant. HEAD ANGIOGRAM: Bilateral intracranial internal carotid arteries are patent. There are atherosclerotic ossifications within the intracranial ICAs without significant stenosis. Bilateral anterior cerebral and anterior communicating arteries are patent. Bilateral middle cerebral arteries are patent. Bilateral intracranial vertebral arteries and basilar artery are patent. Bilateral posterior cerebral arteries are patent. There is origin of the right RN OUTPATIENT SURGERY. No large intracerebral artery aneurysm is visualized. There is no arteriovenous malformation. Procedure Note Interface, Received Via [employer] - 03/03/2019 9:24 AM EST INDICATION: 88-year-old male with intraventricular hemorrhage. TECHNIQUE: Noncontrast axial computed tomography scans of the head were obtained. A contrast-enhanced multidetector helical CTA of the head and neck were acquired. The degree of the extracranial internal carotid artery stenosis was measured using NASCET criteria. Automated dose lowering techniques and/or adjustment according to patient size were utilized for this exam. COMPARISON: No prior relevant studies are available at the time of this dictation. FINDINGS: NONCONTRAST CT HEAD: Intraventricular hemorrhage is present in the bilateral lateral ventricles more within the right lateral ventricle. The bonilla-white matter differentiation is well preserved. There is no evidence of acute territorial infarction. Periventricular and subcortical nonspecific white matter hypodensities are present consistent with small vessel ischemia. There is no midline shift or mass effect. Prominence of the ventricles and sulci consistent with cortical parenchymal volume loss. Basal cisterns are patent. The calvarium is intact. Extracranial soft tissues are unremarkable. Left frontal and ethmoid sinuses are partially opacified. The mastoid air cells are clear. NECK ANGIOGRAM: Moderate degenerative changes with intervertebral disc space narrowing are present throughout the cervical and upper thoracic spine. Soft tissues of the neck are unremarkable. Nodule is present in the right thyroid lobe measures 1.3 cm.. Emphysematous changes are present in the bilateral lung apices. The arch of the aorta is unremarkable. The origins of the brachiocephalic trunk , left common carotid, and left subclavian arteries are patent. Calcified plaque without hemodynamically significant stenosis is present in the bilateral carotid bulbs. Right internal carotid artery is patent without hemodynamically significant stenosis. Left internal carotid artery is patent without hemodynamically significant stenosis. Bilateral cervical vertebral arteries are patent. Right vertebral artery is dominant. HEAD ANGIOGRAM: Bilateral intracranial internal carotid arteries are patent. There are atherosclerotic ossifications within the intracranial ICAs without significant stenosis. Bilateral anterior cerebral and anterior communicating arteries are patent. Bilateral middle cerebral arteries are patent. Bilateral intracranial vertebral arteries and basilar artery are patent. Bilateral posterior cerebral arteries are patent. There is origin of the right RN OUTPATIENT SURGERY. No large intracerebral artery aneurysm is visualized. There is no arteriovenous malformation. IMPRESSION: 1. Intraventricular hemorrhage is present in the bilateral lateral ventricles. No intracerebral arterial aneurysms. 2. Bilateral common carotid, internal carotid, and vertebral arteries are patent without hemodynamically significant stenosis. 3. Arteries of the [place] are patent. 4. Right thyroid lobe nodule measures 1.3cm. Recommend ultrasound can be obtained on nonurgent basis. 5. Emphysematous changes in the bilateral lung apices. Performing Organization Address City/State/Zipcode Phone Number [facility] [address] [place] [address] CT Angiography Head (03/03/2019 12:41 AM EST) Specimen Impressions Performed At IMPRESSION: [facility] 1. Intraventricular hemorrhage is present in the bilateral lateral ventricles. No intracerebral arterial aneurysms. 2. Bilateral common carotid, internal carotid, and vertebral arteries are patent without hemodynamically significant stenosis. 3. Arteries of the [place] are patent. 4. Right thyroid lobe nodule measures 1.3cm. Recommend ultrasound can be obtained on nonurgent basis. 5. Emphysematous changes in the bilateral lung apices. Narrative Performed At INDICATION: 88-year-old male with intraventricular hemorrhage. [facility] TECHNIQUE: Noncontrast axial computed tomography scans of the head were obtained. A contrast-enhanced multidetector helical CTA of the head and neck were acquired. The degree of the extracranial internal carotid artery stenosis was measured using NASCET criteria. Automated dose lowering techniques and/or adjustment according to patient size were utilized for this exam. COMPARISON: No prior relevant studies are available at the time of this dictation. FINDINGS: NONCONTRAST CT HEAD: Intraventricular hemorrhage is present in the bilateral lateral ventricles more within the right lateral ventricle. The bonilla-white matter differentiation is well preserved. There is no evidence of acute territorial infarction. Periventricular and subcortical nonspecific white matter hypodensities are present consistent with small vessel ischemia. There is no midline shift or mass effect. Prominence of the ventricles and sulci consistent with cortical parenchymal volume loss. Basal cisterns are patent. The calvarium is intact. Extracranial soft tissues are unremarkable. Left frontal and ethmoid sinuses are partially opacified. The mastoid air cells are clear. NECK ANGIOGRAM: Moderate degenerative changes with intervertebral disc space narrowing are present throughout the cervical and upper thoracic spine. Soft tissues of the neck are unremarkable. Nodule is present in the right thyroid lobe measures 1.3 cm.. Emphysematous changes are present in the bilateral lung apices. The arch of the aorta is unremarkable. The origins of the brachiocephalic trunk, left common carotid, and left subclavian arteries are patent. Calcified plaque without hemodynamically significant stenosis is present in the bilateral carotid bulbs. Right internal carotid artery is patent without hemodynamically significant stenosis. Left internal carotid artery is patent without hemodynamically significant stenosis. Bilateral cervical vertebral arteries are patent. Right vertebral artery is dominant. HEAD ANGIOGRAM: Bilateral intracranial internal carotid arteries are patent. There are atherosclerotic ossifications within the intracranial ICAs without significant stenosis. Bilateral anterior cerebral and anterior communicating arteries are patent. Bilateral middle cerebral arteries are patent. Bilateral intracranial vertebral arteries and basilar artery are patent. Bilateral posterior cerebral arteries are patent. There is origin of the right RN OUTPATIENT SURGERY. No large intracerebral artery aneurysm is visualized. There is no arteriovenous malformation. Procedure Note Interface, Received Via [employer] - 03/03/2019 9:24 AM EST INDICATION: 88-year-old male with intraventricular hemorrhage. TECHNIQUE: Noncontrast axial computed tomography scans of the head were obtained. A contrast-enhanced multidetector helical CTA of the head and neck were acquired. The degree of the extracranial internal carotid artery stenosis was measured using NASCET criteria. Automated dose lowering techniques and/or adjustment according to patient size were utilized for this exam. COMPARISON: No prior relevant studies are available at the time of this dictation. FINDINGS: NONCONTRAST CT HEAD: Intraventricular hemorrhage is present in the bilateral lateral ventricles more within the right lateral ventricle. The bonilla-white matter differentiation is well preserved. There is no evidence of acute territorial infarction. Periventricular and subcortical nonspecific white matter hypodensities are present consistent with small vessel ischemia. There is no midline shift or mass effect. Prominence of the ventricles and sulci consistent with cortical parenchymal volume loss. Basal cisterns are patent. The calvarium is intact. Extracranial soft tissues are unremarkable. Left frontal and ethmoid sinuses are partially opacified. The mastoid air cells are clear. NECK ANGIOGRAM: Moderate degenerative changes with intervertebral disc space narrowing are present throughout the cervical and upper thoracic spine. Soft tissues of the neck are unremarkable. Nodule is present in the right thyroid lobe measures 1.3 cm.. Emphysematous changes are present in the bilateral lung apices. The arch of the aorta is unremarkable. The origins of the brachiocephalic trunk , left common carotid, and left subclavian arteries are patent. Calcified plaque without hemodynamically significant stenosis is present in the bilateral carotid bulbs. Right internal carotid artery is patent without hemodynamically significant stenosis. Left internal carotid artery is patent without hemodynamically significant stenosis. Bilateral cervical vertebral arteries are patent. Right vertebral artery is dominant. HEAD ANGIOGRAM: Bilateral intracranial internal carotid arteries are patent. There are atherosclerotic ossifications within the intracranial ICAs without significant stenosis. Bilateral anterior cerebral and anterior communicating arteries are patent. Bilateral middle cerebral arteries are patent. Bilateral intracranial vertebral arteries and basilar artery are patent. Bilateral posterior cerebral arteries are patent. There is origin of the right RN OUTPATIENT SURGERY. No large intracerebral artery aneurysm is visualized. There is no arteriovenous malformation. IMPRESSION: 1. Intraventricular hemorrhage is present in the bilateral lateral ventricles. No intracerebral arterial aneurysms. 2. Bilateral common carotid, internal carotid, and vertebral arteries are patent without hemodynamically significant stenosis. 3. Arteries of the [place] are patent. 4. Right thyroid lobe nodule measures 1.3cm. Recommend ultrasound can be obtained on nonurgent basis. 5. Emphysematous changes in the bilateral lung apices. Performing Organization Address City/[facility] Phone Number [facility] [address] [place] [address] Urinalysis/Urine Culture (03/03/2019 12:15 AM EST) Color Yellow [facility] Pathology Clarity Clear [facility] Pathology Specific [place] 1.026 1.003 - 1.030 [facility] Pathology PH Urine 5.0 5.0 - 8.0 [facility] Pathology Total Protein UA 30 (A) Negative mg/dL [facility] Pathology Glucose UA Negative Negative mg/dL [facility] Pathology Ketone Urine 20 (A) Negative mg/dL [facility] Pathology Bilirubin Negative Negative [facility] Pathology Hemoglobin, Urine Negative Negative [facility] Pathology Leukocyte Negative Negative Jewel/uL [facility] Pathology Nitrite Negative Negative [facility] Pathology WBC 1 0 - 5 /HPF [facility] Pathology RBC 5 (H) 0 - 3 /HPF [facility] Pathology Urine Culture Urinalysis does [facility] not suggest Univ Clin infection. Culture Pathology not performed Specimen Urine Performing Organization Address [facility] Phone Number [facility] [address] [place] [address] [facility] [address] [place] [address] Pathology Type and Screen (03/02/2019 10:40 PM EST) ABO/RH(D) O POS [facility]ology Gel Antibody Screen NEG [facility] Pathology Site Performed at [facility], [facility] [place], [place] Specimen EDTA Whole Blood Performing Organization Address [facility] Cent[facility] Phone Number [facility] [address] [place] [address] [phone] [facility] [address] [place] [address] Pathology Partial Thromboplastin Time (PTT) (03/02/2019 10:40 PM EST) PTT Patient (PAT) 27.6 24.0 - 34.0 s [facility] Pathology Specimen Plasma Performing Organization Address [facility] Phone Number [facility] [address] [place] [address] [phone] [facility] [address] [place] [address] Pathology Protime-INR (03/02/2019 10:40 PM EST) PT Patient 13.3 12.5 - 14.9 [facility] Pathology Int'l Normalized 0.99Comment: Routine [facility] oral [facility] anticoagulation INR is Pathology typically 2.0-3.0. Target INR must be clinically individualized. Specimen Plasma Performing Organization Address [facility] Phone Number [facility] [address] [place] [address] [facility] [address] [place] [address] Pathology Lipid panel (03/02/2019 10:40 PM EST) Cholesterol 130 <200 mg/dL [facility] Pathology Triglyceride 87 <150 mg/dL [facility] Pathology HDL Cholesterol 42 >40 mg/dL [facility] Pathology LDL Cholesterol 71 <100 mg/dL [facility] Pathology VLDL Cholesterol 17 16 - 42 mg/dl [facility] Pathology Non HDL Cholesterol 88 <130 mg/dL [facility] Pathology Specimen Plasma Performing Organization Address [facility] Phone Number [facility] [address] [place] [address] [facility] [address] [place] [phone] Pathology Hemoglobin A1c (03/02/2019 10:40 PM EST) Hemoglobin A1C 5.9 4.0 - 6.0 % [facility] Comment: Univ Clin (NOTE) Pathology <5.7% Average risk of diabetes(ADA) 5.7-6.4% Increased risk of diabetes(ADA) >/= 6.5% Diagnostic for diabetes(ADA) Estimated Avg 123 <126 mg/dL [facility] Glucose [facility] Pathology Specimen Whole Blood Performing Organization Address [facility] Phone Number [facility] [address] [place] [address] [phone] [facility] [address] [place] [address] Pathology Hepatic Function Panel (03/02/2019 10:40 PM EST) Albumin 3.6 3.5 - 5.2 g/dL [facility] Pathology Bilirubin, Total 0.9 <1.2 mg/dL [facility]ology Bilirubin, Direct 0.2 <0.3 mg/dL [facility] Pathology Alkaline Phosphatase 79 40 - 129 U/L [facility] Pathology AST/SGO 16 <40 U/L [facility] Pathology ALT/SGP 19 <41 U/L [facility] Pathology Total Protein 6.1 (L) 6.4 - 8.3 g/dL [facility] Pathology Specimen Plasma Performing Organization Address [facility] Phone Number [facility] [address] [place] [address] [facility] [address] [place] [phone] Pathology Calcium, ionized (03/02/2019 10:40 PM EST) Calcium Ionized,W.B. 1.10 (L) 1.13 - 1.32 [facility] mmol/L [facility] Pathology Specimen Whole Blood Performing Organization Address [facility] Phone Number [facility] [address] [place] [address] [phone] [facility] [address] [place] [address] Pathology Phosphorus Level (03/02/2019 10:40 PM EST) Phosphorus 2.9 2.5 - 4.5 mg/dL [facility] Pathology Specimen Plasma Performing Organization Address [facility] Phone Number [facility] [address] [place] [address] [phone] [facility] [address] [place] [address] [place] [address] Pathology Magnesium Level (03/02/2019 10:40 PM EST) Magnesium 1.9 1.6 - 2.4 mg/dL [facility] Pathology Specimen Plasma Performing Organization Address City/[facility] Phone Number [facility] [address] [place] [address] [facility] [address] [place] [address] Pathology Basic Metabolic Panel (03/02/2019 10:40 PM EST) Bicarbonate 27 22 - 29 [facility] mmol/L Univ [facility] Pathology Chloride 93 (L) 98 - 107 [facility] mmol/L [facility] Pathology Creatinine 1.01 0.70 - 1.20 [facility] mg/dL [facility] Pathology Glucose 105 70 - 140 [facility] mg/dL [facility] Pathology Potassium 4.0 3.4 - 5.1 [facility] mmol/L [facility] Pathology Sodium 132 (L) 136 - 145 [facility] mmol/L [facility] Pathology Blood Urea Nitrogen 16 8 - 23 mg/dL [facility] Pathology Anion Gap 12 8 - 15 mmol/L [facility] Pathology Osmolality, Edgardo 276 275 - 300 [facility] mosm/kg [facility] Pathology BUN/Cre Ratio 16 [facility] Pathology Calcium 8.5 (L) 8.8 - 10.2 [facility] mg/dL [facility] Pathology GFR Non eGFR is not >60 [facility] 2008 calculated in mL/min/1.73m2 [facility] CDK-EPI patients <18 or Pathology >80 years of age. GFR eGFR is not >60 [facility] 2008 calculated in mL/min/1.73m2 [facility] CKD-EPI patients <18 or Pathology >80 years of age. Specimen Plasma Performing Organization Address City/[facility]/Zipcode Phone Number [facility] [address] [place] [address] [facility] [address] [place] [phone] Pathology CBC and Differential (03/02/2019 10:40 PM EST) White Blood Cell 13.4 (H) 4 - 10 [facility] 10*3/uL Univ [facility] Pathology Red Blood Cell 4.96 4.6 - 6.1 [facility] 10*6/uL [facility] Pathology Hemoglobin 15.5 13.5 - 18 [facility] g/dL [facility] Pathology Hematocrit 47.6 41 - 53 % [facility] Pathology Mean Cell Volume 95.9 80 - 96 fL [facility] Pathology Mean Cell Hemoglobin 31.2 27 - 33 pg [facility] Pathology Mean Cell Hgb Conc 32.5 32.0 - 36.0 [facility] g/dL [facility] Pathology Red Cell Dist Width 15.1 (H) 11.5 - 14.5 % [facility] Pathology Platelet Count 238 150 - 400 [facility] 10*3/uL [facility] Pathology Differential Type Automated Diff [facility] Pathology Neutrophil 82 % [facility] Pathology Lymphocyte 9 % [facility] Pathology Monocyte 9 % [facility] Pathology Eosinophil 0 % [facility] Pathology Basophil 0 % [facility] Pathology Abs Neutrophil 11.00 (H) 1.8 - 7.0 [facility] 10*3/uL [facility] Pathology Abs Lymphocyte 1.21 1.2 - 4.0 [facility] 10*3/uL [facility] Pathology Abs Monocyte 1.18 (H) 0 - 0.8 [facility] 10*3/uL [facility] Pathology Abs Eosinophil 0.02 0 - 0.5 [facility] 10*3/uL [facility] Pathology Abs Basophil 0.03 0 - 0.2 [facility] 10*3/uL [facility] Pathology Nucleated Red Blood 0 0 - 0 [facility] Cells /100{WBCs} [facility] Pathology Specimen EDTA Whole Blood Performing Organization Address City/State/Zipcode Phone Number [facility] [address] [place] [address] [facility] [address] [place] [address] Pathology documented in this encounter Visit Diagnoses Diagnosis Intraventricular hemorrhage - Primary Intracerebral hemorrhage ICD (implantable cardioverter-defibrillator) in place documented in this encounter Administered Medications Medication Order MAR Action Action Date Dose Rate Site acetaminophen (TYLENOL) tablet Given 03/05/2019 4:44 PM EST 650 mg 650 mg 650 mg, Oral, Every 6 hours PRN, Mild Pain (Pain Scale Score 1-3), Headaches, Starting Wed03/03/19 at 0732, For 711 hours, Maximum daily dose of acetaminophen is 3,000 mg from all sources in 24 hours., Given 03/04/2019 7:24 PM EST 650 mg Given 03/04/2019 6:06 AM EST 650 mg albuterol (PROVENTIL HFA;VENTOLIN HFA) inhaler 2 puff 2 puff, Inhalation, Every 6 hours PRN, Wheezing, Shortness of Breath, Starting Melissa 03/02/19 at 2313, For 4 days, Shake the inhaler well before each spray., allopurinol (ZYLOPRIM) tablet 300 mg Given 03/07/2019 8:46 AM EST 300 mg 300 mg, Oral, Daily Standard, First dose on Wed03/03/19 at 0900, For 30 days Given 03/06/2019 9:38 AM EST 300 mg Given 03/05/2019 10:15 AM EST 300 mg bisacodyl (DULCOLAX) suppository 10 mg Given 03/07/2019 11:29 AM EST 10 mg 10 mg, Rectal, Daily PRN, Constipation, Starting 03/06/19 at 1449, For 30 days diltiazem (CARDIZEM CD) 24 hr capsule 180 mg Given 03/07/2019 8:46 AM EST 180 mg 180 mg, Oral, Daily Standard, First dose (after last reorder) on 03/04/19 at 0900, For 30 days, Do not crush or chew, Given 03/06/2019 9:38 AM EST 180 mg Given 03/05/2019 10:14 AM EST 180 mg docusate sodium (COLACE) capsule 100 mg Given 03/07/2019 8:46 AM EST 100 mg 100 mg, Oral, 2 Times Daily, First dose on Wed03/03/19 at 0900, For 30 days Given 03/06/2019 9:24 PM EST 100 mg Given 03/06/2019 9:38 AM EST 100 mg fluticasone (FLOVENT HFA) 44 MCG/ACT Given 03/07/2019 8:10 AM EST 2 puffs inhaler 2 puff 2 puff, Inhalation, 2 Times Daily, First dose on 03/05/19 at 1045, For 14 days Given 03/06/2019 7:38 AM EST 2 puffs Given 03/05/2019 9:21 PM EST 2 puffs lidocaine (XYLOCAINE) 5 % ointment Topical, Four Times Daily-PRN, Mild Pain (Pain Scale Score 1-3), Starting Wed03/02/19 at 2313, For 30 days, Apply to painful areas., magnesium hydroxide (MILK OF MAGNESIA) 400 Given 03/07/2019 8:43 AM EST 15 mLs MG/5ML suspension 15 mL 15 mL, Oral, Daily PRN, Constipation, Starting Wed03/06/19 at 1449, For 30 days, If serum creatinine > 2 notify provider before administering., Given 03/06/2019 4:42 PM EST 15 mLs mirtazapine (REMERON) tablet 15 mg Given 03/06/2019 9:24 PM EST 15 mg 15 mg, Oral, Nightly, First dose on Wed03/02/19 at 2330, For 30 days Given 03/05/2019 9:12 PM EST 15 mg Given 03/04/2019 9:40 PM EST 15 mg ondansetron (ZOFRAN-ODT) disintegrating tablet 4 mg 4 mg, Oral, Every 8 hours PRN, Nausea, Vomiting, Starting Wed03/06/19 at 1024, For 30 days, Dissolve on tongue., pantoprazole (PROTONIX) EC tablet 20 mg Given 03/07/2019 8:46 AM EST 20 mg 20 mg, Oral, Daily Standard, First dose on Wed03/03/19 at 0900, For 30 days, Do not crush or chew, Given 03/06/2019 9:38 AM EST 20 mg Given 03/05/2019 10:17 AM EST 20 mg polyethylene glycol (MIRALAX) packet 17 g Given 03/07/2019 8:44 AM EST 17 g 17 g, Oral, Daily Standard, First dose on Wed03/07/19 at 0900, For 30 days, Mix in 8 ounces of water, juice or milk. Avoid use in patients who require thickened liquids due to potential increased risk for aspiration., predniSONE (DELTASONE) tablet 5 mg Given 03/07/2019 8:46 AM EST 5 mg 5 mg, Oral, Daily Standard, First dose on Wed03/03/19 at 0900, For 30 days, Take with food., Given 03/06/2019 9:38 AM EST 5 mg Given 03/05/2019 10:18 AM EST 5 mg senna 8.6 MG 2 tablet Given 03/06/2019 9:24 PM EST 2 tablets 2 tablet, Oral, Nightly PRN, Constipation, Starting Melissa 03/02/19 at 2107, For 30 days Given 03/05/2019 9:12 PM EST 2 tablets Given 03/04/2019 8:47 PM EST 2 tablets spironolactone (ALDACTONE) tablet 25 mg Given 03/07/2019 8:46 AM EST 25 mg 25 mg, Oral, Daily Standard, First dose on Wed03/03/19 at 0900, For 30 days Given 03/06/2019 9:38 AM EST 25 mg Given 03/05/2019 10:16 AM EST 25 mg tamsulosin (FLOMAX) capsule 0.4 mg Given 03/07/2019 8:46 AM EST 0.4 mg 0.4 mg, Oral, Daily Standard, First dose on Wed03/03/19 at 0900, For 30 days, Swallow whole. Do not crush, chew or open., Given 03/06/2019 9:38 AM EST 0.4 mg Given 03/05/2019 10:16 AM EST 0.4 mg tiotropium (SPIRIVA RESPIMAT) inhalation Given 03/07/2019 8:10 AM EST 2 puffs spray 2 puff 2 puff, Inhalation, Daily RT, First dose on Wed03/06/19 at 0800, For 30 days Given 03/06/2019 7:38 AM EST 2 puffs Medication Order MAR Action Action Date Dose Rate Site acetaminophen (OFIRMEV) New Bag 03/04/2019 9:16 PM 1,000 mg 400 mL/hr infusion 1,000 mg EST 1,000 mg, Intravenous, Administer over 15 Minutes, Once, 03/04/19 at 2115, For 1 dose, Maximum dose 3 gm daily from all sources, calcium gluconate in NaCl 0.9 % New Bag 03/03/2019 1:30 PM EST 2 g 50 mL/ hr infusion 2 g/50 mL 2 g, Intravenous, Administer over 1 Hours, Every 1 hour PRN, for ionized calcium < 1.13 mmol/L (4.51 mg/dL), Starting Wed03/03/19 at 0331, For 7 days, Ionized Calcium 1 - 1.12 mmol/L (4.01 - 4.5 mg/dL): give 2 g q1h x 1 Ionized Calcium less than 1 mmol/L (less than 4.01 mg/dL): give 2 g q1h x2 *For ICU Stay only, discontinue on transfer*, diltiazem (CARDIZEM CD) 24 hr capsule 180 mg Given 03/03/2019 4:16 AM EST 180 mg 180 mg, Oral, Once, Wed03/03/19 at 0415, For 1 dose hydrALAZINE (APRESOLINE) injection 10 mg New Bag 03/03/2019 5:39 AM EST 10 mg 10 mg, Intravenous, Every 6 hours PRN, Other, Hypertension, if SBP >140, Starting Melissa 03/02/19 at 2306, For 30 days, Dilute in 25-50 ml normal saline. Administer over 30 minutes., New Bag 03/02/2019 11:33 PM EST 10 mg hydrALAZINE (APRESOLINE) injection 10 mg New Bag 03/03/2019 3:38 AM EST 10 mg 10 mg, Intravenous, Once, Wed03/03/19 at 0330, For 1 dose, Dilute in 25-50 ml normal saline. Administer over 30 minutes., hydrALAZINE (APRESOLINE) injection 10 mg New Bag 03/05/2019 10:17 PM EST 10 mg 10 mg, Intravenous, Every 6 hours PRN, Other, Starting 03/04/19 at 1849, For 30 days, Please give if the SBP > 140, New Bag 03/05/2019 4:44 PM EST 10 mg New Bag 03/04/2019 7:24 PM EST 10 mg iohexol (OMNIPAQUE) 350 New Syringe/Cartridge 03/03/2019 12:31 AM 75 mLs Left Arm MG/ML contrast EST injection 75 mL 75 mL, Given by IV, 1 TIME IMAGING, Wed03/03/19 at 0030, For 1 dose ipratropium-albuterol (DUONEB) 0.5-2.5 (3) Given 03/04/2019 9:00 AM EST 3 mLs MG/3ML nebulizer solution 3 mL 3 mL, Nebulization, Daily Standard, First dose on Wed03/03/19 at 0900, For 4 days, For Adults Q8 Hours is Hospital Standard, all orders will be changed to this unless JB is selected 'Yes' below., Given 03/03/2019 8:05 AM EST 3 mLs ipratropium-albuterol (DUONEB) 0.5-2.5 (3) Given 03/05/2019 12:29 PM EST 3 mLs MG/3ML nebulizer solution 3 mL 3 mL, Nebulization, Daily Standard, First dose (after last modification) on 03/05/19 at 1000, For 1 dose, For Adults Q8 Hours is Hospital Standard, all orders will be changed to this unless JB is selected 'Yes' below., labetalol (NORMODYNE,TRANDATE) injection 10 New Bag 03/04/2019 8:45 PM EST 10 mg mg 10 mg, Intravenous, Every 6 hours PRN, High Blood Pressure, Starting Melissa 03/02/19 at 2306, For 30 days New Bag 03/03/2019 12:47 AM EST 10 mg magnesium sulfate 8 mEq in NaCl 0.45 New Bag 03/04/2019 9:40 PM EST 8 mEq 50 mL/hr % infusion 50 mL (premix) 8 mEq, Intravenous, Administer over 60 Minutes, Once, 03/04/19 at 2115, For 1 dose, each 8 mEq equivalent to 1 gm, magnesium sulfate infusion 2 g/50 New Bag 03/03/2019 6:09 AM EST 16 mEq 50 mL/hr mL (premix) 16 mEq, Intravenous, Every 1 hour PRN, for serum magnesium < 2 mEq/L, Starting Wed03/03/19 at 0331, For 7 days, Serum Magnesium 1.6 - 1.9: give 16 mEq (2 g) q1h x 2 Serum Magnesium 1.5 and less: give 16 mEq (2 g) q1h x 3 *For ICU Stay only, discontinue on transfer*, New Bag 03/03/2019 3:56 AM EST 16 mEq 50 mL/hr NaCl infusion 0.9 % Restarted 03/06/2019 3:36 PM EST 50 mL/hr at 50 mL/hr, Intravenous, Continuous, Starting 03/06/19 at 1500, For 30 days niCARdipine (CARDENE) 40 Rate/Dose Verify 03/03/2019 11:00 AM EST 5 mg/hr 25 mL/hr mg in sodium chloride 0.9 % 200 mL infusion (0.2 mg/mL) 5-15 mg/hr (25-75 mL/hr), Intravenous, at 25-75 mL/hr, Continuous, Starting Wed03/03/19 at 0330, For 30 days, Titrate to maintain SBP < 140., Rate/Dose Verify 03/03/2019 10:00 AM EST 5 mg/hr 25 mL/hr Rate/Dose Verify 03/03/2019 9:00 AM EST 5 mg/hr 25 mL/hr ondansetron (ZOFRAN) injection 4 mg New Bag 03/03/2019 10:22 AM EST 4 mg 4 mg, Intravenous, Every 8 hours PRN, Nausea, Vomiting, Starting Wed03/03/19 at 0923, For 30 days documented in this encounter
--- NOTE | 2019-04-05 10:22 | ED ---
Respiratory - HPI Summary HPI Summary: 88 year old M presenting to [facility] accompanied by EMS complains of difficulty breathing since a few days ago. Pt has Hx CHF, COPD, A-Fib and was diagnosed with intracranial hemmorhage that occured last month and was recently discharged from rehab. EMS reports pt was 80% on room air when picked up. Pt typically uses 2L nasal cannula but has been on 3L recently due to difficulty breathing. EMS adminstered DuoNeb which helped with breathing. Pt reports difficulty breathing and productive cough and denies fever, CP, and worsening swelling in legs. He reports allergy to ASA and is a former smoker but denies alcohol use. The patient rates the pain 0/10 in severity. Symptoms aggravated by nothing. Symptoms alleviated by DuoNeb. Medications reviewed. Allergies noted. - History of Current Complaint Stated Complaint: TROUBLE BREATHING/POSS PNEUMONIA PER EMS Time Seen by Provider: 04/05/19 10:03 Hx Obtained From: Patient, EMS Onset/Duration: Gradual Onset, Lasting Days, Still Present Current Severity: Moderate Character: Cough (Productive) Aggravating Factor(s): Nothing Alleviating Factor(s): Dose Of Medications - DuoNeb Associated Signs and Symptoms: SOB - Risk Factors Status Asthmaticus Risk Factors: Smoking - Former smoker Cardiac Risk Factors: CHF - Allergy/Home Medications Allergies/Adverse Reactions: Allergies Allergy/AdvReac Type Severity Reaction Status Date / Time aspirin Allergy Swelling Verified 04/05/19 10:20 Home Medications: Home Medications traMADol TAB* [Ultram*] 50 mg PO Q8H PRN MDD 150mg 04/05/19 [History Confirmed 04/05/19] PMH/Surg Hx/FS Hx/Imm Hx Endocrine/Hematology History: Reports: Hx Anticoagulant Therapy Cardiovascular History: Reports: Hx Atrial Fibrillation, Hx Congestive Heart Failure, Hx Hypertension, Hx Pacemaker/ICD Respiratory History: Reports: Hx Chronic Obstructive Pulmonary Disease (COPD), Hx Sleep Apnea Denies: Hx Asthma GI History: Reports: Hx Gastroesophageal Reflux Disease Musculoskeletal History: Reports: Hx Arthritis Psychiatric History: Reports: Hx Depression - Surgical History Surgical History: Yes Surgery Procedure, Year, and Place: pacemaker - Immunization History Date of Influenza Vaccine: 02/02/2019 Infectious Disease History: Denies: Traveled Outside the [place] in Last 30 Days - Family History Known Family History: Positive: Hypertension Family History: FHx of CA - Social History Alcohol Use: Rare Hx Substance Use: No Substance Use Type: Reports: None Hx Tobacco Use: Yes Smoking Status (MU): Former Smoker Review of Systems Negative: Fever Negative: Chest Pain Positive: Shortness Of Breath, Cough - productive Negative: Edema - no worsening swelling in legs All Other Systems Reviewed And Are Negative: Yes Physical Exam - Summary Physical Exam Summary: Constitutional: Well-developed, Well-nourished, Alert. (-) Distressed Skin: Warm, Dry HENT: Normocephalic; Atraumatic Eyes: Conjunctiva normal Neck: Musculoskeletal ROM normal neck. (-) JVD, (-) Stridor, (-) Tracheal deviation Cardio: Rhythm regular, rate normal, Heart sounds normal; Intact distal pulses; Radial pulses are 2+ and symmetric. (-) Murmur Pulmonary/Chest wall: 92% on 10L non-rebreather, Speaking in full sentences, (+ ) Wheezing bilaterally Abd: Soft, (-) tenderness, (-) Distension, (-) Guarding, (-) Rebound Musculoskeletal: (-) Peripheral edema Lymph: (-) Cervical adenopathy Neuro: Alert, Oriented x3 Psych: Mood and affect Normal Triage Information Reviewed: Yes Vital Signs Reviewed: Yes - Urszula Coma Scale Best Eye Response: 4 - Spontaneous Best Motor Response: 6 - Obeys Commands Best Verbal Response: 5 - Oriented Coma Scale Total: 15 Procedures - Sedation Patient Received Moderate/Deep Sedation with Procedure: No Diagnostics - Laboratory Result Diagrams: 04/05/19 10:27 04/05/19 10:27 Lab Statement: Any lab studies that have been ordered have been reviewed, and results considered in the medical decision making process. - Radiology CXR Radiology Interpretation Completed By: Radiologist Summary of Radiographic Findings: IMPRESSION: CARDIOMEGALY WITH PULMONARY VASCULAR CONGESTION. ED physician has reviwed this report. - CT CTA Chest CT Interpretation Completed By: Radiologist Summary of CT Findings: IMPRESSION: 1. RIGHT PULMONARY ARTERY EMBOLI EXTENDING FROM THE LOWER BRANCHES DISTALLY. 2. EMPHYSEMA. 3. CARDIOMEGALY. 4. ATHEROSCLEROSIS. 5. PRELIMINARY FINDINGS WERE DISCUSSED WITH DR. RAMOS AT APPROXIMATELY 12:00 PM ON APRIL 05, 2019. ED Physician has reviewed this report. CT Brain CT Interpretation Completed By: Radiologist Summary of CT Findings: IMPRESSION: THERE IS HIGH ATTENUATION MATERIAL WITHIN THE SULCI OF THE OCCIPITAL LOBES BILATERALLY. EVALUATION IS LIMITED GIVEN THE HISTORY OF RECENT INTRAVENOUS CONTRAST ADMINISTRATION. THE. DIFFERENTIAL INCLUDES RESIDUAL CONTRAST ENHANCEMENT VERSUS SUBARACHNOID HEMORRHAGE. RECOMMEND FOLLOW-UP IMAGING AFTER RESOLUTION OF INTRAVENOUS CONTRAST ENHANCEMENT. PRELIMINARY FINDINGS WERE DISCUSSED WITH DR. RAMOS AT 12:45 PM ON APRIL 05, 2019. ED physician has reviewed this report. - EKG 1100 Cardiac Rate: NL - 70 BPM Summary of EKG Findings: An EKG at 1100 reveals paced rhythm at 70 BPM. No evidence for STEMI or Sgarbossa criteria. ED physician has reviewed and interpreted this EKG. Re-Evaluation - Re-Evaluation First Eval Re-Evaluation Time: 12:50 Comment: Spoke with the patient and his family concerning goals for treatment. Patient is DNR, and they would prefer he is not transferred. Second Eval Re-Evaluation Time: 13:05 Comment: Spoke with Dr. Plasencia concerning admission. Patient and family agreeable with plan. Disposition - Course Course Of Treatment: Patient is here with worsening shortness of breath for the past couple days. Patient was diagnosed with a right intraventricular hemorrhage roughly 1 month ago and was just discharged from the rehabilitation facility. Patient arrived and was satting in the low 90s on 8 L nonrebreather. This is atypical for patient. Patient a chest x-ray does not show any obvious infiltrate. Due to this, patient was CTA to evaluate for PE which showed a PE. Patient does have an elevated troponin so this is a submassive PE. Patient is not a TPA candidate due to his recent intraventricular hemorrhage. Patient had a repeat CT brain after receiving contrast that showed no obvious bleeding. However, a bleed cannot be excluded. Patient and family are given the options of anticoagulating or not and they decided to give patient heparin. Neurosurgery was called prior to this and they were okay with starting heparin 1 month after a bleed if there is no bleeding on current CT. ICU was consulted and they the admitted the patient. - Diagnoses Provider Diagnoses: Pulmonary embolism, Hypoxia, Elevated troponin, Intracranial hemorrhage, Atrial fibrillation - Physician Notifications Discussed Care Of Patient With: Joseph Plasencia Time Discussed With Above Provider: 12:00 Instructed by Provider To: Other - Discussed pt's case with Erinn and he said plan of treatment depends on goals of family. Recommends brain CT and consultation with neurosurgery. At 12:[address] Mann who said pt should be okay for anticoagulation 1 month out if brain CT comes back negative. At 1245 Dr. Norton from radiology states that a brain bleed is not visible at this time but they are not compltely sure as it may not be visible for 24 hours on another contrast CT. At [address] Plasencia who accepts the patient for admission to the ICU. - Critical Care Time Critical Care Time: 75-104 min - 75 min Discharge ED - Sign-Out/Discharge Documenting (check all that apply): Patient Departure - Patient accepted for admission to ICU. - Discharge Plan Condition: Stable Disposition: ADMITTED TO [facility] - Billing Disposition and Condition Condition: STABLE Disposition: Admitted to [facility] - Attestation Statements Document Initiated by Jill: Yes Documenting Scribe: Rosalind Wilson Provider For Whom Jill is Documenting (Include Credential): Dr. Pernell Ramos MD Scribe Attestation: Rosalind Giron scribed for Dr. Pernell Ramos MD on 04/05/19 at 1658. Scribe Documentation Reviewed: Yes Provider Attestation: The documentation as recorded by the Rosalind macdonald accurately reflects the service I personally performed and the decisions made by me, Dr. Pernell Ramos MD Status of Scribe Document: Viewed
[2019-04-05 10:40] LABS: ABS Basophils 0.1 10^3/ul (0-0.2); ABS Lymphocytes 0.5 10^3/ul (1.0-4.8); ABS Monocytes 1.1 10^3/ul (0-0.8); ABS Neutrophils 14.9 10^3/ul (1.5-7.7); Eosinophil % 0.1 %; Hematocrit 45 % (42-52); Hemoglobin 14.9 g/dL (14.0-18.0); Lymphocyte % 2.8 %; Mean Corpuscular HGB Conc 33 g/dL (31-36); Mean Corpuscular Hemoglobin 33 pg (27-31); Mean Corpuscular Volume 98 fL (80-94); Mean Platelet Volume 7.9 fL (7.4-10.4); Nucleated Red Blood Cells % 0.2; Platelet Count 296 10^3/uL (150-450); Red Blood Count 4.57 10^6 /uL (4.18-5.48); Red Cell Distribution Width 16 % (10-15); White Blood Count 16.5 10^3/uL (3.5-10.8)
[2019-04-05 10:46] LABS: INR 1.27 (0.82-1.09)
[2019-04-05 11:12] LABS: Albumin 3.6 g/dL (3.2-5.2); Anion Gap 13 mmol/L (2-11); CO2 Carbon Dioxide 25 mmol/L (22-32); Calcium 8.7 mg/dL (8.6-10.3); Chloride 96 mmol/L (101-111); Potassium 4.7 mmol/L (3.5-5.0); Sodium 134 mmol/L (135-145)
[2019-04-05 11:16] LABS: Troponin I 0.15 ng/mL (<0.03)
[2019-04-05 11:18] LABS: ALT 38 U/L (7-52); AST 26 U/L (13-39); Alkaline Phosphatase 75 U/L (34-104); BUN/Creatinine Ratio 16.5 (8-20); Blood Urea Nitrogen 26 mg/dL (6-24); EGFR African American 50.3 (>60); EGFR Non-African American 41.6 (>60); Globulin 3.5 g/dL (2-4); Glucose 154 mg/dL (70-100); Total Protein 7.1 g/dL (6.4-8.9)
[2019-04-05] MEDS ORDERED: Iodixanol* (CONTRAST) 320 MG/ML 100 ML SDV IV ONE (11:24)
[2019-04-05] MEDS ORDERED: NS 0.9% 1000 ML** 500 ML IV ONE (11:35)
[2019-04-05] MEDS ORDERED: Heparin VIAL(*) 5000 UNITS/ML VIAL (FIVE THOUSAND) IV SCH (14:00)
[2019-04-05] MEDS ORDERED: Albuterol HFA INHALER* 8 gm MDI INH PRN (14:12)
[2019-04-05] MEDS ORDERED: Ondansetron TAB* 4 MG PO PRN (14:12)
[2019-04-05] MEDS ORDERED: traMADol TAB* 50 MG PO PRN (14:12)
[2019-04-05] MEDS: Heparin DRIP 25,000 UNITS(*) 25,000 UNITS/500 ML BAG IV SCH (14:25)
--- NOTE | 2019-04-05 20:17 | HP ---
CRITICAL CARE ADMISSION NOTE: DATE OF ADMISSION: 04/05/19 HISTORY OF PRESENT ILLNESS: The patient is an 88-year-old male with past medical history of CHF, COPD, and atrial fibrillation, previously maintained on anticoagulation, who suffered a spontaneous intracranial hemorrhage approximately 1 month ago, was just recently discharged from rehab. He is brought to the emergency department after he called 911 for progressive shortness of breath. He normally is maintained on 2 L nasal cannula which escalated to 3. He was given a new DuoNeb by EMS and brought to [facility] Emergency Department, where he was evaluated and underwent CT angiography for rule out pulmonary embolism. It in fact revealed a right pulmonary artery pulmonary embolus extending into the lower branches. Discussions were held with the family extensively, well documented by Dr. Wilkes. The family has chosen that they would rather he not be transferred to a larger facility for perhaps direct intravascular clot retrieval. Certainly, he is not a candidate for thrombolytic and it was settled upon that anticoagulation would be pursued after a clearance from Neurosurgery and a repeat CT head, both of those have been obtained. Heparin has been started. I had a second informed consent conversation with the patient and family. The patient was very clear in his words that he has had a good life. I supported that this was a good decision. The recurrent pulmonary embolus if untreated here was extremely likely, I quoted at least 30% and perhaps higher in him due to his ongoing lack of mobility. I also quoted that I felt the risk of anticoagulation while the outcome could be catastrophic was generally lower than the risk of recurrent pulmonary embolism untreated in this scenario. All present voiced understanding and appreciation for the ongoing explanations and care. PAST MEDICAL HISTORY: Significant for congestive heart failure, COPD, atrial fibrillation. He was formerly maintained on an anticoagulant, which was stopped after his brain bleed, though reportedly there was clearance to restart, though that prescription had not yet been filled. He also has a history of a pacemaker and hypertension. He has a history of sleep apnea. He is maintained on oxygen at home. He also has a history of gastroesophageal reflux disease, arthritis, and depression. MEDICATIONS: His home medication list is as documented in the MAR including allopurinol, albuterol, diltiazem, asmanex, aldactone, flomax, zofran and tramadol. ALLERGIES: He has drug allergy to ASPIRIN causing swelling. FAMILY HISTORY: Remarkable for hypertension and malignancy. He reports he had a flu vaccination on 02/02/19. SOCIAL HISTORY: He is living at home with the support of his family. He reports he has not been eating much lately. He is a former smoker. REVIEW OF SYSTEMS: As detailed in HPI. He does report he has had some productive cough, no fever or chills, obviously the shortness of breath. Denies chest pain. Denies focal motor weakness, visual change, headache, or neck stiffness. Denies hemoptysis or hematemesis. He does have some nausea when he eats and he is complaining about a loss of appetite and reportedly has lost about 25 pounds over the last couple of months. PHYSICAL EXAMINATION GENERAL: He is a well-developed, robust white male, in very mild respiratory distress. VITAL SIGNS: He has a temperature of 36.9 degrees, heart rate of 98, respiratory rate of 28, saturating in the low 90s on 6 L nasal cannula with a blood pressure of 130/70. HEENT: He is normocephalic, atraumatic. His pupils are equal, reactive to light. NECK: Supple, nontender without JVD. LUNGS: Clear bilaterally. Apparently, he was wheezing earlier but has received a treatment, I found him clear. HEART: S1, S2 regular. ABDOMEN: Soft, nontender, nondistended with positive bowel sounds. EXTREMITIES: Low extremities without edema. NEUROLOGIC: He is alert and oriented and grossly nonfocal. DIAGNOSTIC STUDIES/LAB DATA: Laboratory evaluation is revealing a white blood cell count of 16,000 with a hemoglobin of 15, the platelet count of 296. Serum sodium 134, potassium 4.7, chloride 96, bicarb 25, BUN and creatinine 26/1.6. Chest x-ray with very mild pulmonary edema. CT with right pulmonary artery emboli extending into the lower branches as well as emphysema, cardiomegaly, no pneumonia. CT brain revealing high attenuation material within the sulci of the occipital lobes bilaterally. This could be consistent with subarachnoid but is also consistent with his prior contrast administration on the CT angiogram that was performed earlier today. EKG is paced at 70. ASSESSMENT AND PLAN: He is an 88-year-old male, recent intracranial hemorrhage , who did well from a rehab standpoint, now presents back with pulmonary embolism. Multiple informed consent discussions were held. Clearance was gained from Neurosurgery to initiate anticoagulation. Family has chosen against transfer to a higher level of care and have made the patient DNR consistent with his known wishes. He is now on a heparin drip. We will be following his neuro checks. Certainly, we will hold the heparin should he have any untoward event, though I cannot imagine we would proceed to craniotomy as that would not be consistent with the general flavor of the conversation I had with both the patient and the family. We will continue all supportive care and will see where he takes us in the coming hours to days. While intubation is still technically on the table, I certainly would not recommend it, and if his respiratory status begins to deteriorate, I would suggest we consider DNI as well. With respect to his complaints of early satiety and nausea, we can look at that a little bit more closely with some liver function tests as well as a gallbladder ultrasound. For now, he is at peace with these decisions as is his family and they have voiced great clarity and appreciation for the care. TIME SPENT: The aggregate time providing critical care as well as personally interpreting multiple laboratory evaluations, imaging studies, reviewing the medical records, and discussing the case in detail with the ED attending, Dr. Wilkes, as well as with the patient and his family has thus far exceeded 60 minutes. [id number]/[facility] #: [id number] NILDA
[2019-04-05] MEDS: Mirtazapine TAB* 15 MG PO SCH (20:44)
[2019-04-05] MEDS: Lidocaine 5% OINT* TUBE TOPICAL SCH (21:35)
[2019-04-06 04:35] LABS: Albumin 3.2 g/dL (3.2-5.2); BUN/Creatinine Ratio 20.8 (8-20); Calcium 8.7 mg/dL (8.6-10.3); EGFR African American 69.1 (>60); EGFR Non-African American 57.1 (>60); Globulin 3.2 g/dL (2-4); Phosphorus 3.7 mg/dL (2.5-5.0); Potassium 4.5 mmol/L (3.5-5.0); Total Bilirubin 1.4 mg/dL (0.2-1.0); Total Protein 6.4 g/dL (6.4-8.9)
[2019-04-06] MEDS: Heparin DRIP 25,000 UNITS(*) 25,000 UNITS/500 ML BAG IV SCH ×2 (04:47→18:16)
[2019-04-06 09:40] LABS: ABS Basophils 0.1 10^3/ul (0-0.2); ABS Eosinophils 0.1 10^3/ul (0-0.6); ABS Lymphocytes 1.1 10^3/ul (1.0-4.8); ABS Monocytes 1.4 10^3/ul (0-0.8); ABS Neutrophils 13.8 10^3/ul (1.5-7.7); Eosinophil % 0.3 %; Hematocrit 41 % (42-52); Hemoglobin 13.7 g/dL (14.0-18.0); Lymphocyte % 6.7 %; Mean Corpuscular HGB Conc 33 g/dL (31-36); Mean Corpuscular Hemoglobin 32 pg (27-31); Mean Corpuscular Volume 97 fL (80-94); Platelet Count 278 10^3/uL (150-450); Red Blood Count 4.27 10^6 /uL (4.18-5.48); Red Cell Distribution Width 16 % (10-15); White Blood Count 16.4 10^3/uL (3.5-10.8)
[2019-04-06] MEDS: Mometasone 220 MCG MDI INH SCH (09:40)
[2019-04-06] MEDS: Tiotropium Brom/Olodaterol MDI INH SCH (09:40)
[2019-04-06] MEDS: Morphine INJ* 2 MG/ML 1 ML SYRINGE (TWO MG - NEW SYRINGE VERSION) IV PRN ×3 (09:43→20:55)
[2019-04-06] MEDS: Ondansetron INJ* 2 MG/ML VIAL IV PRN ×2 (09:43→13:52)
[2019-04-06] MEDS: Lidocaine 5% OINT* TUBE TOPICAL SCH ×2 (10:00→21:25)
[2019-04-06] MEDS: Spironolactone TAB* 25 MG PO SCH (10:00)
[2019-04-06] MEDS: Pantoprazole TAB * 40 MG TAB PO SCH (10:00)
[2019-04-06] MEDS: Diltiazem CD CAP* 180 MG PO SCH (10:00)
[2019-04-06] MEDS: Allopurinol TAB* 300 MG PO SCH (10:00)
[2019-04-06] MEDS: Tamsulosin CAP* 0.4 MG PO SCH (10:00)
--- NOTE | 2019-04-06 12:08 | PN ---
Date of Service: 04/06/19 Critical Care Services: Tolerated anticoagulation. GB US explains his post-prandial N. Vital Signs: Temp Pulse Resp BP SpO2 FiO2 36.9 C 70 26 133/73 93 80 04/06/19 10:04 04/06/19 11:00 04/06/19 11:00 04/06/19 11:00 04/06/19 11:00 04/06 09:27 Physical Exam: Gen: Mild SOB HEENT: NCAT, PERRL Lungs: scant rhonchi Cardiac: S1S2 regular Abdomen: soft, mild RUQ tend, ND, obese, +BS Extremities: no edema Neuro: A&O to baseline Fluid Balance (Past 24 Hours): I= O= Net Intake & Output 04/04/19 04/05/19 04/06/19 04/07/19 06:59 06:59 06:59 06:59 Intake Total 1470 Output Total 700 Balance 770 Weight 101.06 kg Intake: IV Fluids 1470 heparin 470 Oral 0 Output: Urine 700 Other: # Voids 0 Labs: Laboratory Results - last 24 hr 04/05/19 04/06/19 04/06/19 21:26 03:56 03:56 WBC 16.4 H RBC 4.27 Hgb 13.7 L Hct 41 L MCV 97 H MCH 32 H MCHC 33 RDW 16 H Plt Count 278 MPV 9.0 Neut % (Auto) 84.1 Lymph % (Auto) 6.7 [place] % (Auto) 8.3 Eos % (Auto) 0.3 Baso % (Auto) 0.6 Absolute Neuts (auto) 13.8 H Absolute Lymphs (auto) 1.1 Absolute Monos (auto) 1.4 H Absolute Eos (auto) 0.1 Absolute Basos (auto) 0.1 Absolute Nucleated RBC 0.0 Nucleated RBC % 0.0 APTT 58.3 H 57.6 H Sodium Potassium Chloride Carbon Dioxide Anion Gap BUN Creatinine Est GFR ( Amer) Est GFR (Non-Af Amer) BUN/Creatinine Ratio Glucose Calcium Phosphorus Magnesium Total Bilirubin AST ALT Alkaline Phosphatase Total Protein Albumin Globulin Albumin/Globulin Ratio 04/06/19 04:06 WBC RBC Hgb Hct MCV MCH MCHC RDW Plt Count MPV Neut % (Auto) Lymph % (Auto) [place] % (Auto) Eos % (Auto) Baso % (Auto) Absolute Neuts (auto) Absolute Lymphs (auto) Absolute Monos (auto) Absolute Eos (auto) Absolute Basos (auto) Absolute Nucleated RBC Nucleated RBC % APTT Sodium 133 L Potassium 4.5 Chloride 96 L Carbon Dioxide 30 Anion Gap 7 BUN 25 H Creatinine 1.20 H Est GFR ( Amer) 69.1 Est GFR (Non-Af Amer) 57.1 BUN/Creatinine Ratio 20.8 H Glucose 133 H Calcium 8.7 Phosphorus 3.7 Magnesium 2.0 Total Bilirubin 1.40 H AST 22 ALT 34 Alkaline Phosphatase 71 Total Protein 6.4 Albumin 3.2 Globulin 3.2 Albumin/Globulin Ratio 1.0 Studies: GB US with large number gallstones, no CBD dilatation, mild pericholecystic fluid Nutrition: Diet ordered Impression: 88 y/o male with recent ICH now presents with pulmonary embolism and symptoms of biliary colic Plan: Pulmonary Embolism - clinically stable but still high oxygen requirement at 15lpm [place]. Heparin gtt therapeutic and no notable clinical neurological changes. 24H CTH pending. Transition to PO anticoagulation pending surgical evaluation for GB and CTH results. ICH - clinically stable, CTH pending. Biliary Colic - GB apparently filled with stones, some question of pericholecystic fluid, WBC 16 and bili is up. Will add Abx for now. Not a simple surgical candidate at this time as D/W family. Will seek surgical opinion. COPD - continue bronchodilators D/W pt and family in detail.
[2019-04-06 13:25] LABS: Urine Appearance Turbid; Urine Bilirubin Negative (Negative); Urine Blood 2+ (Negative); Urine Color Amber; Urine Glucose Negative (Negative); Urine Ketones Negative (Negative); Urine Nitrite Negative (Negative); Urine Protein 1+(30 mg/dL) (Negative); Urine Urobilinogen Positive (Negative)
[2019-04-06 13:30] LABS: Urine Bacteria Absent (Absent); Urine Red Blood Cell 3+(>10/hpf) (Absent); Urine White Blood Cell 3+(>20/hpf) (Absent)
[2019-04-06] MEDS ORDERED: Piperacillin/Tazobac ADVAN(*) 3.375 GM in NS 0.9% 100 ML* 100 ML IVPB ONE (13:30)
[2019-04-06] MEDS ORDERED: Zosyn per Pharmacy* NOTE FOLLOW UP SCH (14:00)
[2019-04-06] MEDS: ZOSYN 3.375 GM Q8H per EXTENDED INFUSION IVPB SCH ×2 (18:09)
[2019-04-06] MEDS: Mirtazapine TAB* 15 MG PO SCH (20:55)
[2019-04-07] MEDS: ZOSYN 3.375 GM Q8H per EXTENDED INFUSION IVPB SCH ×4 (01:16→09:28)
[2019-04-07 04:53] LABS: ABS Eosinophils 0.1 10^3/ul (0-0.6); ABS Lymphocytes 1.1 10^3/ul (1.0-4.8); ABS Monocytes 1.3 10^3/ul (0-0.8); ABS Neutrophils 10.7 10^3/ul (1.5-7.7); Eosinophil % 0.6 %; Hematocrit 42 % (42-52); Hemoglobin 13.8 g/dL (14.0-18.0); Lymphocyte % 8.3 %; Mean Corpuscular HGB Conc 33 g/dL (31-36); Mean Corpuscular Hemoglobin 32 pg (27-31); Mean Corpuscular Volume 97 fL (80-94); Mean Platelet Volume 7.7 fL (7.4-10.4); Platelet Count 271 10^3/uL (150-450); Red Cell Distribution Width 16 % (10-15); White Blood Count 13.3 10^3/uL (3.5-10.8)
[2019-04-07 05:12] LABS: Albumin/Globulin Ratio 0.9 (1-3); BUN/Creatinine Ratio 19.4 (8-20); Calcium 8.8 mg/dL (8.6-10.3); EGFR African American 60.9 (>60); EGFR Non-African American 50.3 (>60); Globulin 3.4 g/dL (2-4); Phosphorus 4.4 mg/dL (2.5-5.0); Potassium 4.4 mmol/L (3.5-5.0); Total Bilirubin 1.4 mg/dL (0.2-1.0); Total Protein 6.4 g/dL (6.4-8.9)
[2019-04-07] MEDS: Mometasone 220 MCG MDI INH SCH (08:07)
[2019-04-07] MEDS: Tiotropium Brom/Olodaterol MDI INH SCH (08:07)
[2019-04-07] MEDS: Heparin DRIP 25,000 UNITS(*) 25,000 UNITS/500 ML BAG IV SCH (08:52)
[2019-04-07] MEDS: Spironolactone TAB* 25 MG PO SCH (09:06)
[2019-04-07] MEDS: Pantoprazole TAB * 40 MG TAB PO SCH (09:06)
[2019-04-07] MEDS: Allopurinol TAB* 300 MG PO SCH (09:06)
[2019-04-07] MEDS: Tamsulosin CAP* 0.4 MG PO SCH (09:06)
[2019-04-07] MEDS: Diltiazem CD CAP* 180 MG PO SCH (09:06)
[2019-04-07] MEDS: Lidocaine 5% OINT* TUBE TOPICAL SCH (09:09)
[2019-04-07] MEDS ORDERED: Lorazepam PYXIS KEY PRN (11:03)
[2019-04-07] MEDS: Morphine INJ* 2 MG/ML 1 ML SYRINGE (TWO MG - NEW SYRINGE VERSION) IV PRN ×2 (11:21→12:40)
[2019-04-07] MEDS: LORazepam INJ* 2 MG/ML 1 ML VIAL IV PUSH PRN ×3 (11:21→14:11)
--- NOTE | 2019-04-07 11:24 | PN ---
Date of Service: 04/07/19 Vital Signs: Temp Pulse Resp BP SpO2 FiO2 36.9 C 70 25 123/68 92 100 04/07/19 04:00 04/07/19 11:00 04/07/19 11:00 04/07/19 11:00 04/07/19 11:00 04/07 04:00 Physical Exam: Gen: NAD but some pleuritic pain and new productive cough HEENT: NCAT Lungs: rhonchi Cardiac: S1S2 regular Abdomen: soft, NT, ND, +BS Extremities: no edema Neuro: A&O, grossly non-focal Fluid Balance (Past 24 Hours): I= O= Net Intake & Output 04/05/19 04/06/19 04/07/19 04/08/19 06:59 06:59 06:59 06:59 Intake Total 1470 966 450 Output Total 700 800 Balance 770 166 450 Weight 101.06 kg 101.06 kg Intake: IV Fluids 1470 489 NS 6 heparin 470 483 IVPB 297 ABX 297 Oral 0 180 450 Output: Urine 700 800 Other: # Voids 0 Labs: Laboratory Results - last 24 hr 04/06/19 04/07/19 04/07/19 13:02 04:41 04:41 WBC RBC Hgb Hct MCV MCH MCHC RDW Plt Count MPV Neut % (Auto) Lymph % (Auto) [place] % (Auto) Eos % (Auto) Baso % (Auto) Absolute Neuts (auto) Absolute Lymphs (auto) Absolute Monos (auto) Absolute Eos (auto) Absolute Basos (auto) Absolute Nucleated RBC Nucleated RBC % APTT 60.7 H Sodium 133 L Potassium 4.4 Chloride 93 L Carbon Dioxide 33 H Anion Gap 7 BUN 26 H Creatinine 1.34 H Est GFR ( Amer) 60.9 Est GFR (Non-Af Amer) 50.3 BUN/Creatinine Ratio 19.4 Glucose 123 H Calcium 8.8 Phosphorus 4.4 Magnesium 2.0 Total Bilirubin 1.40 H AST 18 ALT 28 Alkaline Phosphatase 70 Total Protein 6.4 Albumin 3.0 L Globulin 3.4 Albumin/Globulin Ratio 0.9 L Urine Color Liseth Urine Appearance Turbid Urine pH 5.0 Ur Specific [place] 1.020 Urine Protein 1+(30 mg/dl) A Urine Ketones Negative Urine Blood 2+ A Urine Nitrate Negative Urine Bilirubin Negative Urine Urobilinogen Positive A Ur Leukocyte Esterase 3+ A Urine WBC (Auto) 3+(>20/hpf) A Urine RBC (Auto) 3+(>10/hpf) A Urine Bacteria Absent Urine Glucose Negative 04/07/19 04:41 WBC 13.3 H RBC 4.30 Hgb 13.8 L Hct 42 MCV 97 H MCH 32 H MCHC 33 RDW 16 H Plt Count 271 MPV 7.7 Neut % (Auto) 80.7 Lymph % (Auto) 8.3 [place] % (Auto) 10.0 Eos % (Auto) 0.6 Baso % (Auto) 0.4 Absolute Neuts (auto) 10.7 H Absolute Lymphs (auto) 1.1 Absolute Monos (auto) 1.3 H Absolute Eos (auto) 0.1 Absolute Basos (auto) 0.0 Absolute Nucleated RBC 0.0 Nucleated RBC % 0.0 APTT Sodium Potassium Chloride Carbon Dioxide Anion Gap BUN Creatinine Est GFR ( Amer) Est GFR (Non-Af Amer) BUN/Creatinine Ratio Glucose Calcium Phosphorus Magnesium Total Bilirubin AST ALT Alkaline Phosphatase Total Protein Albumin Globulin Albumin/Globulin Ratio Urine Color Urine Appearance Urine pH Ur Specific [place] Urine Protein Urine Ketones Urine Blood Urine Nitrate Urine Bilirubin Urine Urobilinogen Ur Leukocyte Esterase Urine WBC (Auto) Urine RBC (Auto) Urine Bacteria Urine Glucose Plan: 88 y/o male with acute PE heparinized now after recent ICH 1 month ago. Now also with newly diagnosed gallstones and low grade cholecystitis now clearly requesting comfort care in the presence of his family who uniformly concur that this expression is consistent with his known wishes and express full support for his decision. ERI updated. Comfort Care orders placed.
[2019-04-07] MEDS ORDERED: Morphine PCA ADULT* 5 MG/ML 30 ML PCA SCH (12:00)
[2019-04-07] MEDS ORDERED: Morphine PCA LOW DOSE* 1 MG/ML 30 ML SYRINGE PCA SCH (12:00)
[2019-04-07 16:33] VITALS: BP 69/35
[2019-04-07] MEDS ORDERED: Amiodarone 360 MG IVPREMIX* 360 MG/200 ML BAG IV ONE (16:44)
[2019-04-07] MEDS ORDERED: Amiodarone 150 MG IVPREMIX* 150 MG/100 ML BAG IV ONE (16:44)
[2019-04-07] MEDS ORDERED: EPINEPHrine SYR 0.1MG/ML* SYRINGE ONE (16:47)
--- NOTE | 2019-04-07 18:16 | PN ---
Hospitalist Progress Note Date of Service: 04/07/19 Note: Called to bedside by primary RN at 17:39 to assess patient. No spontaneous respirations noted, pupils fixed and dilated, no heartbeat when auscultated for >1minute. Time of 17:39. Condolences provided to family at bedside. They will locate home information and advise nursing staff by telephone.
== END 2019-04-07 16:39 | disposition expired | DRG 176 ==
LOC: ED 10:02 → ICU 14:08
PROVIDERS: ADMIT Internal Medicine Critical Care Medicine; ATTEND Internal Medicine Critical Care Medicine
PROC: 5A09357 Assistance with Respiratory Ventilation, Less than 24 Consecutive Hours, Continuous Positive Airway Pressure (ICD-10-PCS; principal; 2019-04-05)
DX: I26.99 Other pulmonary embolism without acute cor pulmonale (principal); K80.10 Calculus of gallbladder with chronic cholecystitis without obstruction; I50.9 Heart failure, unspecified; J44.9 Chronic obstructive pulmonary disease, unspecified; I48.91 Unspecified atrial fibrillation; Z66 Do not resuscitate; Z51.5 Encounter for palliative care; I11.0 Hypertensive heart disease with heart failure; G47.30 Sleep apnea, unspecified; K21.9 Gastro-esophageal reflux disease without esophagitis; M19.90 Unspecified osteoarthritis, unspecified site; F32.9 Major depressive disorder, single episode, unspecified; Z88.6 Allergy status to analgesic agent; Z95.0 Presence of cardiac pacemaker; Z87.891 Personal history of nicotine dependence
CPT/HCPCS: 36415; 70450; 71045; 71275; 76705; 80053; 81003; 81015; 82803; 83605; 83735; 83880; 84100; 84484; 85025; 85610; 85730; 87040; 87077; 87086; 87186; 87641; 93005; 94660; 99285; A9270-GY; J0171; J0282; J1644; J2060; J2270; J2405; J2543; J3535; Q9967